=== PATIENT | male | born 1945 | race Caucasian/White ===

== ENCOUNTER → 2017-01-04 | Outpatient (CLI) | payer OTHER ==
[~2017-01-04] VITALS: Ht 182.9 cm; Wt 98.4 kg
[~2017-01-04] MED LIST: ALEVE220 MG PO; AVALIDE 300-121 EACH PO; CARISOPRODOL 3350 MG PO; DILAUDID 4 MG TA4 M1 PO; DILAUDID4 MG PO; DILAUDID8 MG PO; FENTANYL PA25 MCG/HR TRANSDERM; FENTANYL PA50 MCG/HR TRANSDERM; GABAPENTIN; HYDROCODON-ACE1 EAC4 PO; IBUPROFEN 200200 M1 PO; KETOPROFEN; LEXAPRO20 MG PO; LIPITOR10 MG PO; MIRAPEX1 MG PO; MYRBETRIQ25 MG PO; NEURONTIN 300300 M1 PO; NORVASC 5 MG TAB5 MG PO; NORVASC5 MG PO; VICODIN 5-5001 EACH PO; ZIGRID PO
--- NOTE | ~2017-01-04 | HPC ---
[facility] [place] [address] PAIN MANAGEMENT CONSULTATION Name: TOMASGENESIS COLE Room #: REG REGLA BecerraBulmaroKatieBulmaro#: [id number] Admission: 01/04/17 Attend Phys: Sean Pinto MD Discharge: Date of : 43 Report #: [id number] THIS REPORT FOR: //name// CC: Calixto Pinto DATE OF SERVICE: 01/04/2017 REASON FOR VISIT: Followup visit for chronic back pain with radiculopathy status post extensive lumbar fusion. HISTORY OF PRESENT ILLNESS: The patient was in the pain clinic today for the first time since July. I spent about 30 minutes with him discussing his pain and treatment options. We went through a number of issues regarding medication. We talked about opioids, see opioid crisis, proper use of medications, adjuncts and even discussed marijuana. We spent a great deal of time today discussing about implantable options. We discussed in great detail spinal cord stimulation once again. I talked about Nevro, [employer] and [employer]. We talked about trial implant, long-term management and activities associated with the use of a spinal cord stimulator if successful. I think he can return to golf. Intrathecal pump therapies were discussed also as well with pros and cons reviewed. Final topic of discussion today was about biologic treatments including stem cell both adipose retrieved as well as bone marrow retrieved mesenchymal cells and also platelet-rich plasma and I do not think he is a candidate for those sorts treatments at this time. PHYSICAL EXAMINATION: GENERAL: His affect is pleasant but a little bit depressed. VITAL SIGNS: His blood pressure 134/82, heart rate 87, respirations are 16 and his oxygen saturation is 93%. MUSCULOSKELETAL: Able to move from sitting to standing position but walks slowly with antalgic features. Limited range of motion of the lumbar spine is noted. There is large scar that extends from roughly the lower thoracic region to the sacrum. He has hardware in L2 through S1 bilaterally. He has tenderness in the left buttock cheek, just below the iliac crest. He has some straight leg raising pain. No focal weakness is noted. Sensation is intact. IMPRESSION: 1. Severe low back pain with radiculopathy. 2. Lumbar spondylosis above the level of his fusion at L1-L2. 3. Post-laminectomy syndrome with fusion. 4. Management of high risk medication. [address] [address] PAIN MANAGEMENT CONSULTATION Name: GENESIS MARIN [facility] Room #: REG HUNTERCasper Cifuentes#: [id number] Admission: 01/04/17 Attend Phys: Sean Pinto MD Discharge: Date of : 43 Report #: [id number] RECOMMENDATIONS: 1. Caudal epidural injection. 2. Continue use of medication for chronic pain. He will try Soma as a muscle relaxant for bedtime. He has been sleeping in his recliner and hopefully this will provide some relief. PROCEDURE: Caudal injection under fluoroscopic guidance. DESCRIPTION OF PROCEDURE: Skin was prepped with ChloraPrep. Skin anesthetized over the sacroiliitis. With careful manipulation, I advanced the needle into the sacral hiatus. I injecedt first some Omnipaque, which appeared to be far lateral to the right with dye exiting through the anterior neural foramen. I then repositioned the needle until obtained an excellent epidurogram. Omnipaque was used to achieve this. This was then followed by 12 mL 0.5% lidocaine mixed with 80 mg of triamcinolone. He tolerated the procedure well. Pain score was 5 at discharge. Follow up as needed. By: [id number] Sean Pinto MD /nt
[2017-01-04 13:44] VITALS: BP 138/81
== END | disposition home or self-care (01) ==
LOC: PAIN 07:00
DX: M47.896 Other spondylosis, lumbar region (principal); M96.1 Postlaminectomy syndrome, not elsewhere classified; G89.29 Other chronic pain; Z98.1 Arthrodesis status; Z87.891 Personal history of nicotine dependence

== ENCOUNTER → 2017-02-27 | Outpatient (CLI) | payer OTHER ==
[~2017-02-27] VITALS: Ht 182.9 cm; Wt 96.3 kg
--- NOTE | ~2017-02-27 | HPC ---
[facility] [address] [address] PAIN MANAGEMENT CONSULTATION Name: GENESIS MARIN III Room #: REG REGLA Vane#: [id number] Admission: 02/27/17 Attend Phys: Sean Pinto MD Discharge: Date of : 43 Report #: [id number] THIS REPORT FOR: //name// CC: Dr. Spenser Pinto DATE OF REGISTRATION: 02/27/2017. The patient is back in my clinic today after spending time with Dr. Dueñas. He has been bouncing back and forth between both clinics. I saw him last year in December. He became impatient when the his spinal cord stimulator was scheduled for later than he had anticipated. I think it was actually misquoted as far as the date, he was told the end of February. I told him that we would probably be able to do it sooner than that. At any rate, without discussing with me, he simply called up Dr. Dueñas. He was more than happy to perform the procedure for him. He trial and Dr. Dueñas has him scheduled for an implant of a Nevro spinal cord stimulator device. Taking what he says a bit with a grain of salt, he has reported to me that his pain relief was so-so. He really wants the device because he thinks it will help him, but he reports that he was may be 51% better, not dramatically better. He has no pain in his leg at this time. When I first met him, it was more of a radicular component. Now, his pain is more axial in nature and it radiates around his waist, almost in a belt-like distribution. He was curious about whether or not there was something going on intra-abdominally. He has had two hernia repairs and asked about whether or not the mesh of the hernias could be causing the pain. I think it is much more likely that the pain is being caused by the multiple rods and screws that are in his back. The majority of patients who have extensive spinal fusion and we should also note that he has a sacroiliac screw, patients often experience axial back pain as he is describing today, it is worse with standing and walking. Really today, he does not describe radiation much at all. Current medicines are not being prescribed through our clinic. He last received opioids from us in July. I believe his last prescription was from Dr. Dueñas and since Dr. Dueñas is doing the procedures for him at , I have referred to him. I have told him that I will not prescribe medications going forward for him because of the inability to follow recommendations for remaining on an opioid agreement with a single physician. I did present another option and that would be the possibility of intrathecal therapy. For patients in our practice who have had mostly axial back pain rather than radicular pain, we have seen far more improvement and benefit with [facility] [address] [facility] [place] [address] PAIN MANAGEMENT CONSULTATION Name: GENESIS MARIN III Room #: REG REGLA Cifuentes#: [id number] Admission: 02/27/17 Attend Phys: Sean Pinto MD Discharge: Date of : 43 Report #: [id number] intrathecal therapies if oral medications are either not enough or are causing side effects. He has been able to tolerate the opioids, but I do not feel that he is managing them as well as I would like. PHYSICAL EXAMINATION: GENERAL: Today, he is fidgety and anxious. VITAL SIGNS: His blood pressure is 153/74, heart rate 70, he is 6 feet tall, 212 pounds for a BMI of 28.8. NEUROLOGIC: He is able to move from a sitting to standing position, he ambulates without much difficulty. Examination of the spine reveals pain and tenderness mostly along the scar in the paravertebral region from the upper edges of his hardware to his sacrum. He has tenderness out on the sacroiliac joint. No straight leg raising discomfort today and denies radicular symptoms of numbness, tingling or weakness. IMPRESSION: 1. Chronic intractable low back pain today, radiculopathy seems minimal. 2. Lumbar spondylosis that is present with mobility above the level of his two fusions and in between the two fusions. 3. Anxiety and chronic pain. RECOMMENDATIONS: Follow up with Dr. Dueñas and determine whether Dr. Dueñas would consider a trial of intrathecal therapy versus implanting his Nevro device given his limited reported improvement. If Dr. Dueñas and the [facility] team are not following intrathecal pumps at this time as many pain specialists have decided against this burdensome therapy, I would recommend him to follow up with Dr. Martin Collins who has a very active and robust intrathecal pump management practice. Dr. Collins has an excellent program of pump management, which I have observed first hand at [facility]. I have told the patient that I have stopped placing intrathecal pumps and would not be able to provide the therapy for him at this time; he understood. Prior to his discharge, I agreed to try and reach Dr. Dueñas on the phone and discuss his case so that, he and I will have an understanding of where we are going from here. We have both been seeing the patient who decides which of us he would like to see based upon his own criteria of availability. We need to make sure we are in the same page. Followup visit is planned as needed in my clinic and I will personally call the patient on the phone after I have spoken with Dr. Dueñas. I was not able to reach him today. By: [id number] Sean Pinto MD /nt
[2017-02-27 13:43] VITALS: BP 153/74
== END ==
LOC: PAIN 06:48
DX: M47.26 Other spondylosis with radiculopathy, lumbar region (principal); G89.29 Other chronic pain; F41.8 Other specified anxiety disorders; Z87.891 Personal history of nicotine dependence

== ENCOUNTER → 2018-09-04 | Outpatient (CLI) | payer OTHER ==
[~2018-09-04] VITALS: Ht 182.9 cm; Wt 97.5 kg
[~2018-09-04] MED LIST changes: +DILAUDID 4 MG TA4 MG PO; +DURAGESIC1 EAC1 TRANSDERM; +DURAGESIC1 EAC2 TRANSDERM
--- NOTE | ~2018-09-04 | HPC ---
[facility] [address] [place] [address] PAIN MANAGEMENT CONSULTATION Name: GENESIS MARIN III Room #: REG REGLA Cifuentes#: [id number] Admission: 09/04/18 Attend Phys: Claudette Martins Discharge: Date of : 43 Report #: [id number] THIS REPORT FOR: //name// CC: Claudette Martins [facility] DATE OF SERVICE: 09/04/2018 CHIEF COMPLAINT: Today here for medication management for his chronic intractable low back pain with radiculopathy. HISTORY OF PRESENT ILLNESS: The patient returns to the Pain Clinic here at [facility] today after he has been at the [facility] for several months for a medication refill. Dr. Pinto has been seeing him at [facility] that has been closing his patient practice down there and shifting all of his patients back here. The patient has chronic low back pain that radiates into his left buttock and to the top of his right foot. He complains of pain score of 4/10, mostly achy numbness. Today, he tells me it is worse when he is playing golf and standing, but the medications do help as well as heat and sitting in his recliner. He tells me that he is going to [place] where he lives for about 4 months of the year, leaving tomorrow and he is in need of his prescription refills prior to leaving. Dr. Pinto had talked to the patient via telephone and tried to make arrangements so this patient could get his 3-month medications prior to his flight tomorrow. ALLERGIES: OXYCODONE, KEFLEX, AUGMENTIN, PHENERGAN AND REGLAN. CURRENT MEDICATIONS: Dilaudid 4 mg every 6 hours, fentanyl patch 50 mcg every 72 hours, Soma 350 mg at bedtime, amlodipine 5 mg daily, atorvastatin 10 mg daily, Lexapro 20 mg daily, Mirapex 1 mg at bedtime and, irbesartan/hydrochlorothiazide 300/12.5 daily. PQRS: 1. The patient has a history of osteoarthritis in his bilateral lower extremities. Denies rheumatoid arthritis. 2. Height 6 feet 0 inches, weight is 215, BMI is 29.2. 3. Vital signs: Blood pressure 149/86, pulse is 88, respirations 18, oxygen sat is 93%. 4. Pain score today is 4/10. 5. Fall risk. He denies dizziness. Does not need help walking or standing, has not fallen in the last 3 months. 6. He is not on a blood thinner and he takes antihypertensives on a daily basis. 7. His opioid sign contract unsure of from [facility], there is one here at [facility]. 8. His risk assessment tool is low and his functional assessment is 45/70. [facility] [address] [place] [address] PAIN MANAGEMENT CONSULTATION Name: T[facility]GENESIS [facility] Room #: REG REGLA Cifuentes#: [id number] Admission: 09/04/18 Attend Phys: Claudette Martins Discharge: Date of : 43 Report #: [id number] 9. The patient does not use recreational drug use. He is a former smoker and he drinks alcohol daily. We did not check the prescription monitoring system as this patient was an add-on today. The patient tells me he does fill his medications at [facility] pharmacy and has filled them a month ago per the pharmacy. PHYSICAL EXAMINATION: GENERAL: This is a well-developed, well-nourished gentleman that appears his stated age of [age] years old. He is alert and oriented and his affect is appropriate. HEENT: Normocephalic, atraumatic. Extraocular eye muscles are intact. Mucous membranes are moist. Hearing is adequate. NEUROLOGICAL AND MUSCULOSKELETAL: He is able to move from sitting to standing and he ambulates without much difficulty. He has been walking around the room, moving quite frequently today without difficulty. He denies any radicular pain symptoms in his upper legs today, but does have some pain in the top foot area of numbness and tingling. ASSESSMENT: 1. Chronic intractable low back pain, radiculopathy, minimal today. 2. Lumbar spondylosis, status post fusions. 3. Management of high risk medications under opioid agreement. 4. Post-laminectomy syndrome with fusion. We reviewed the fact that opiate medications are being used to provide analgesia adequate to support activities of daily living, not attempting to achieve a specific pain score on the 0-10 Visual Analog Scale. The current opiate medications are providing sufficient analgesia to allow the patient to participate in activities of daily living. The patient is not exhibiting any aberrant behavior suggestive of drug diversion. The patient is not having any adverse reactions to medications. The patient is not suffering from daytime somnolence or mental acuity changes. The patient is managing opiate-induced constipation with appropriate [id number] agents and dietary considerations. The patient was counseled on concern for caution with operating a motor vehicle while using opiate medications. A physical exam was performed and the patient's functional status was evaluated. All patients with back pain were advised against the bed rest greater than 4 days and were advised to return to normal activities. Pain score assessment was noted and the treatment plan was reviewed with the patient. All current medications, both prescribed and OTC were reviewed and reconciled on the electronic medical record. Tobacco screening was accomplished and smoking cessation was advised when indicated. BMI was noted and diet/exercise modification was recommended for all patients following outside normal parameters. [facility] [address] [place] [address] PAIN MANAGEMENT CONSULTATION Name: TOMASGENESIS III Room #: REG [facility]#: [id number] Admission: 09/04/18 Attend Phys: Claudette Martins Discharge: Date of : 43 Report #: [id number] I reviewed with the patient today their responsibilities to safeguard prescription medications, reviewed their responsibility to utilize medications only as prescribed by the physician. They are to seek and receive pain medications only from 1 physician group ( [facility]). They are to use 1 pharmacy and keep the clinic informed if they change pharmacies. Their responsibilities include making followup visits in a timely fashion and to avoid abrupt discontinuation of medication usage. Their responsibilities further include bringing their medications (bottles from the pharmacy with residual pills) to the visit for possible confirmation of pill counts and the patient understands it is their responsibility to submit to random drug screens to ensure both that the medications prescribed are present, and that no other controlled substances are present. All prescriptions provided today were generated electronically. PLAN: 1. The patient was seen in followup today for Dr. Sean Pinto for this patient as a patient of his at [facility] transferring back to [place]. He is here for medication management today as patient is going to [place] tomorrow for 4 months' time period and needs his medication filled prior to that long trip for the winter. 2. The patient has a script here from Dr. Pinto for 3 months of his medications to be filled downstairs at our [facility] for his fentanyl 50 mcg patches quantity 45 and Dilaudid 4 mg every 6 hours, quantity 360, which are both three-month supplies. 3. Discussed with the pharmacy downstairs. They do not have 3 months of this medication on hand, they would have to order this and would be able to have it by tomorrow. The patient tells me that he is flying out in the morning, so therefore the patient is not able to use the medical mall pharmacy. I called [facility], his local pharmacy that he normally fills his medications, they were able to fill at least 1 month possibly longer. They were checked their supply, pharmacist Edita told me she would personally take care of him today, so he could leave tomorrow. 4. I instructed the patient that he should get as many of his 3-month supply as possible from the [facility]acy, take the letter that Dr. Pinto has written for him out to his doctors in [place] and present that to them. He does have a pain management doctor he follows in [place] as well as a primary care doctor. Hopefully, one of those physicians will be willing to write his leftover medications to get him back to see us in his 4 months. The patient is agreeable with attempting this, get medications filled in [place]. 5. If the patient is unsuccessful for finding a doctor to fill his medicines after he is ending the prescriptions that we have given him, he may have to return to see Dr. Pinto for a visit in the winter if he is unable to find a physician willing to write his medication. The patient understands this and hopes that his primary care doctor in [place] will write his medicines for the remainder of his trip. [address] [address] PAIN MANAGEMENT CONSULTATION Name: GENESIS MARIN III Room #: REG REGLA Cifuentes#: [id number] Admission: 09/04/18 Attend Phys: Claudette Martins Discharge: Date of : 43 Report #: [id number] 6. Scripts given for Linzess 145 mcg, #30 for his constipation with 2 additional refills. Second medication is Flexeril 10 mg 1 t.i.d., the patient to take one tablet at bedtime, quantity 90 with no additional refills. 7. The patient was discharged with scripts in hand to go to [facility]. We will see the patient in 12/2017 if not further appointment sooner if he needs be as stated above. Care given today with collaboration of Dr Pinto. <ELECTRONICALLY SIGNED> By: Claudette Martins 09/05/18 0728 [id number] Claudette Martins /gita
[2018-09-04 11:11] VITALS: BP 149/86
== END ==
LOC: PAIN 10:42
DX: M47.26 Other spondylosis with radiculopathy, lumbar region (principal); G89.4 Chronic pain syndrome; M96.1 Postlaminectomy syndrome, not elsewhere classified; F11.21 Opioid dependence, in remission; Z79.899 Other long term (current) drug therapy

== ENCOUNTER → 2019-01-10 | Outpatient (CLI) | payer OTHER ==
[~2019-01-10] VITALS: Ht 182.9 cm; Wt 98.0 kg
[~2019-01-10] MED LIST changes: +CYMBALTA30 MG PO; +FLOMAX0.4 MG PO; +LINZESS145 MCG PO; +MODAFINIL200 MG PO; +SINEMET 25-1001 EAC1 PO; +TESTOSTERONE75 G1 TOP
[2019-01-10 09:54] VITALS: BP 131/86
--- NOTE | 2019-01-10 10:14 | NUR ---
Pain Clinic Assessment: 1. History of Osteoarthritis: Left Lower Extremity Right Lower Extremity History of Rheumatoid Arthritis: Not Applicable 2. Height: 6 ft. 0 in. 182.9 cm. Weight: 216.0 lb. oz. 97.977 kg. Patient's BMI: 29.3 3. Vital Signs: BP: 131/86 Pulse: 81 Resp: 14 Temp: 02 Sat: 97 ECG Mon: 4. Pain Intensity: 3 5. Fall Risk: Dizziness: Y Needs help standing or walking: N Fallen in the last 3 months: N Fall risk comments: 6. Patient on Blood Thinner: None 7. History of Hypertension: Y 8. Opioid Therapy greater than 6 weeks: Y Opiate Contract Signed: 07/07/16 9. Risk Assessment Tool Provided: 3-L0W 10. Functional Assessment Tool: 11. Recreational Drug Use: Never Drug Type: Tobacco Use: Former Smoker Tobacco Type: Amount or Packs/day: How Many Years: Alcohol Use: Yes Frequency: Daily Quant: 1-2
--- NOTE | 2019-01-11 07:44 | HPC ---
[facility] [address] [place] [address] PAIN MANAGEMENT CONSULTATION Name: GENESIS MARIN III Room #: REG Casper Cifuentes#: [id number] Admission: 01/10/19 ������������������ Attend Phys: Claudette Martins Discharge: ������������������ Date of : 43 Report #: [id number] THIS REPORT FOR: //name// CC: Claudette Martins [facility] DATE OF SERVICE: 01/10/2019 CHIEF COMPLAINT: Chronic intractable low back pain with radiculopathy. HISTORY OF PRESENT ILLNESS: The patient returns to the pain clinic today after being in [place] for the winter. He is here for medication consultation regarding his fentanyl patches and Dilaudid pills, he has ongoing low back pain and chronic right buttock pain and today he is experiencing some abdominal pain and having uncontrolled diarrhea. He tells me he had a CAT scan yesterday and seeing a GI doctor later today. His pain score today is a 3/10, worse with playing golf and lying down. His medication is very helpful as well as using his heat in his recliner. When the patient was in [place], he did see Dr. Pollard who is his pain doctor that he sees while he easley in [place] and has had seen him for several years. He did receive 2 months of medications from him. The first month it was his fentanyl 50 mcg patches and his Dilaudid 4 mg, the second month he did see a nurse practitioner who switched him to fentanyl patches that were 75 mcg to wear every 72 hours and no Dilaudid pills. He tells me he did not want to start those until he had the okay with Dr. Sean Pinto. He had two fentanyl 50 patches left, so he has placed a patch on today seeking Dr. Pinto's advice of if he should start the 75, which he did fill and has brought with him today or if he should destroy those and use his 50 mcg patches that he has been using for quite some time. ALLERGIES: OXYCODONE, KEFLEX, AUGMENTIN, PROMETHAZINE AND REGLAN. MEDICATIONS: Current list of medications, Linzess 145 mcg daily, testosterone gel daily, Flomax daily, modafinil 200 mg daily, Cymbalta 30 mg daily, Sinemet 25/100 t.i.d., hydromorphone 4 mg every 6 hours p.r.n., fentanyl patch 50 mcg every 48 hours, Zegerid, amlodipine 5 mg daily, Mirapex 0.25 mg t.i.d., and irbesartan/hydrochlorothiazide daily. PQRS: 1. He has osteoarthritis in his lower extremities, in his lower back. He denies any rheumatoid arthritis. 2. Height 6 feet, weight is 216, BMI is 29. 3. Vital signs: Blood pressure 131/86, pulse is 81, respirations 14, oxygen sat is 97. 4. Pain score is 3/10. [address] [address] PAIN MANAGEMENT CONSULTATION Name: GENESIS MARIN [facility] Room #: TABITHA Cifuentes#: [id number] Admission: 01/10/19 ������������������ Attend Phys: Claudette Martins Discharge: ������������������ Date of : 43 Report #: [id number] 5. The patient complains of some dizziness. He does not need help walking or standing. Has not fallen in the last 3 months. 6. The patient is not on any blood thinners. He does take medicines for hypertension. 7. Opiate therapy is greater than 6 weeks. Therefore, an opiate signed contract is on the chart. 8. Risk assessment tool is low. Functional assessment is 45/70. 9. Recreational drug use, he denies, he is a former smoker and does drink alcohol. We were unable to obtain prescription monitoring from [place], but we do have his prescriptions here of his 75 mcg that he filled on 12/24/2018. PHYSICAL EXAMINATION: GENERAL: This is a well-developed, well-nourished gentleman that appears his stated age of 73. He is alert and orientated and his affect is appropriate. HEENT: Normocephalic, atraumatic. Extraocular eye muscles are intact. Mucous membranes are moist. MUSCULOSKELETAL: He is able to move from sitting to standing and ambulates without much difficulty. He has a slightly antalgic gait. He denies any radicular pain today. Only complains of some mild abdominal pain. ASSESSMENT: 1. Chronic intractable low back pain with radiculopathy. 2. Lumbar spondylosis, status post fusion. 3. Management of high risk medication and returns a written opioid agreement. 4. Post-laminectomy syndrome with fusion. We reviewed the fact that opiate medications are being used to provide analgesia adequate to support activities of daily living, not attempting to achieve a specific pain score on the 0-10 Visual Analog Scale. The current opiate medications are providing sufficient analgesia to allow the patient to participate in activities of daily living. The patient is not exhibiting any aberrant behavior suggestive of drug diversion. The patient is not having any adverse reactions to medications. The patient is not suffering from daytime somnolence or mental acuity changes. The patient is managing opiate-induced constipation with appropriate [id number] agents and dietary considerations. The patient was counseled on concern for caution with operating a motor vehicle while using opiate medications. A physical exam was performed and the patient's functional status was evaluated. All patients with back pain were advised against the bed rest greater than 4 days and were advised to return to normal activities. Pain score assessment was noted and the treatment plan was reviewed with the patient. All current medications, both prescribed and OTC were reviewed and reconciled on the electronic medical record. Tobacco screening was accomplished and smoking cessation was advised when indicated. BMI was noted and diet/exercise modification was recommended for all patients following outside normal [facility] [address] [place] [address] PAIN MANAGEMENT CONSULTATION Name: GENESIS MARIN III Room #: REG [facility] Vane#: [id number] Admission: 01/10/19 ������������������ Attend Phys: Claudette Martins Discharge: ������������������ Date of : 44 Report #: [id number] parameters. I reviewed with the patient today their responsibilities to safeguard prescription medications, reviewed their responsibility to utilize medications only as prescribed by the physician. They are to seek and receive pain medications only from 1 physician group ( [facility]). They are to use 1 pharmacy and keep the clinic informed if they change pharmacies. Their responsibilities include making followup visits in a timely fashion and to avoid abrupt discontinuation of medication usage. Their responsibilities further include bringing their medications (bottles from the pharmacy with residual pills) to the visit for possible confirmation of pill counts and the patient understands it is their responsibility to submit to random drug screens to ensure both that the medications prescribed are present, and that no other controlled substances are present. All prescriptions provided today were generated electronically. PLAN: 1. We discussed treatment options with the patient today. The patient has brought fentanyl patches of 75 mcg from a doctor in [place]. Wondering if he should start those or resume his [address] Pinto gives him. Dr. Pinto was present for part of the discussion today, it was decided to continue his 75 mcg patches every 72 hours. 2. We discussed the morphine mEq with the patient. If the patient were to take Dilaudid 4 mg tablets 3 times a day plus 50 mcg patch every 48 hours, his morphine mEq was 168, if the patient takes 75 mcg patch every 3 days, his morphine mEq is 180. We explained that these are the CDC guidelines, but they want patients to be at 90 morphine mEq or below that is the practice of this doctor's group to try to taper people's medications to a lower dose if able. We have had much success in doing that, but those are above 90 are seen every month for their medication refills. I informed the patient of this that his dose is at 180, so therefore we would see him at least on a monthly basis. 3. The patient and family were instructed to try the fentanyl 75 mcg patches every 72 hours for a total of 3 patches before calling the clinic to tell us they are not effectively controlling his pain. We want the patient to have a good trial with no oral breakthrough Dilaudid and he is able to take some Tylenol Extra Strength if he needs to throughout the day. The patient and verbalized understanding. Appointment made with Dr. Pinto for 01/24/2019. At that time, we will reevaluate how the patient is doing with his current pain control and decided to continue on current dose or resume his previous medications. The patient verbalizes his understanding. 4. No other prescriptions were given today since the patient had the fentanyl in his possession. We did not give him Linzess or Flexeril, which he does get from our facility. The patient is going to see a GI doctor after this visit. [facility] [address] [place] [address] PAIN MANAGEMENT CONSULTATION Name: GENESIS MARIN III Room #: REG REGLA BecerraBulmaroKatieBulmaro#: [id number] Admission: 01/10/19 ������������������ Attend Phys: Claudette Martins Discharge: ������������������ Date of : 44 Report #: [id number] He had a recent CT of his abdomen with contrast and is having some diarrhea issues. I informed them to discuss his Linzess with the GI doctor before we prescribed it. 5. The patient is seen with Dr. Pinto who collaborated care for this extensive visit today. ��������������������������������������������� <ELECTRONICALLY SIGNED> ���������������������������������������� By: Claudette Martins ��������������������������������������������� 01/11/19 0744 [id number] Claudette Martins /gita
== END ==
LOC: PAIN 06:57
DX: M47.26 Other spondylosis with radiculopathy, lumbar region (principal); M96.1 Postlaminectomy syndrome, not elsewhere classified; G89.29 Other chronic pain; Z88.8 Allergy status to other drugs, medicaments and biological substances; Z79.899 Other long term (current) drug therapy; Z79.891 Long term (current) use of opiate analgesic

== ENCOUNTER → 2019-01-24 | Outpatient (CLI) | payer OTHER ==
[~2019-01-24] VITALS: Ht 182.9 cm; Wt 99.3 kg
[~2019-01-24] MED LIST changes: +FENTANYL PATCH75 MCG TRANSDERM; +ZEGERID OTC 201 EACH PO
[2019-01-24 09:46] VITALS: BP 116/68
--- NOTE | 2019-01-24 09:50 | NUR ---
Pain Clinic Assessment: 1. History of Osteoarthritis: Left Lower Extremity Right Lower Extremity History of Rheumatoid Arthritis: Not Applicable 2. Height: 6 ft. 0 in. 182.9 cm. Weight: 219.0 lb. oz. 99.338 kg. Patient's BMI: 29.7 3. Vital Signs: BP: 116/68 Pulse: 103 Resp: 18 Temp: 02 Sat: 94 ECG Mon: 4. Pain Intensity: 3 5. Fall Risk: Dizziness: N Needs help standing or walking: N Fallen in the last 3 months: N Fall risk comments: 6. Patient on Blood Thinner: None 7. History of Hypertension: Y 8. Opioid Therapy greater than 6 weeks: Y Opiate Contract Signed: 07/07/16 9. Risk Assessment Tool Provided: 3-L0W 10. Functional Assessment Tool: 11. Recreational Drug Use: Never Drug Type: Tobacco Use: Former Smoker Tobacco Type: Amount or Packs/day: How Many Years: Alcohol Use: Yes Frequency: Quant:
--- NOTE | 2019-01-28 07:24 | HPC ---
[facility] [address] [place] [address] PAIN MANAGEMENT CONSULTATION Name: GENESIS MARIN III Room #: REG REGLA Cifuentes#: [id number] Admission: 01/24/19 ������������������ Attend Phys: Claudette Martins Discharge: ������������������ Date of : 44 Report #: [id number] THIS REPORT FOR: //name// CC: Claudette Staley MD DATE OF SERVICE: 01/24/2019 CHIEF COMPLAINT: Chronic intractable low back pain with radiculopathy. HISTORY OF PRESENT ILLNESS: This is a 73-year-old gentleman who returns to the pain clinic today for discussion on his medications. We saw him about 2 weeks ago after he had returned from [place] from his winter there with a prescription for fentanyl patches 75 mcg. After much discussion, it was decided to give it a trial of the 75 mcg Duragesic patches with no breakthrough medicine and see how his pain is. The patient returns today telling me that his pain is a 3/10 currently. In the 2-1/2 weeks since we saw the patient, he tells me that the first few days, his pain was really good when he wore a patch, his pain was 1 on day 1 and on day 2, it was about a 4 but day 3, his pain would escalate to 10/10. He tells me he did have to go to [facility] last week where he was given some Flexeril, Benadryl and Ativan to help decrease his pain. No narcotics were given for him upon discharge. He tells me when he is unable to make it 72 hours between patch changes. Previously, he had been on Duragesic patches every 48 hours since he seems to suffer with of dose failure. The patient placed a new patch yesterday and is telling me that his pain is a 3 today, which is pretty typical of how his pain is after on his second day. He would like to be able to decrease his patch change to 48 hours. The patient also tells me he has been having ongoing right upper quadrant pain that he thinks is related from his back. He did have a CT of his abdomen that was negative and did follow up with the GI doctor also having some lab work drawn for other issues from his primary care doctor. ALLERGIES: OXYCODONE, KEFLEX, AUGMENTIN, AMOXICILLIN, PHENERGAN and REGLAN. MEDICATIONS: Zegerid, fentanyl patch 75 mcg every 72 hours, Linzess, testosterone daily, 0.4 daily, Cymbalta 30 mg daily, carbidopa/levodopa 25/100 t.i.d., amlodipine 5 mg daily, Mirapex 0.25 t.i.d. and Avalide 300/12.5 at bedtime. PQRS: He has osteoarthritis in his lower extremities and his lower back. He denies any rheumatoid arthritis. Height is 6 feet, weight is 219 and BMI is 29.7. Vital signs: Blood pressure is 116/68, pulse is 103, respirations 18, oxygen sat is 94 and pain score is 3/10. Fall risk, he denies dizziness. Does [address] [address] PAIN MANAGEMENT CONSULTATION Name: GENESIS MARIN III [id number] Admission: 01/24/19 ������������������ Attend Phys: Claudette Martins Discharge: ������������������ Date of : 44 Report #: [id number] not need help with walking. He has not fallen in the last 3 months. The patient is not on a blood thinner but does take medicines for hypertension. Opioid therapy is greater than 6 weeks; therefore, an opioid signed contract is on the chart. His risk assessment tool is low. His functional assessment is 45/70. Recreational drug use, he denies. He is a former smoker and does drink alcohol. We did check the prescription monitoring system and the patient has returned with 4 patches of his fentanyl 75 mcg. The patient does safeguard his medicine with no aberrant behavior. PHYSICAL EXAMINATION: GENERAL: This is a well-developed, well-nourished gentleman who appears his stated age of 73. He is alert and orientated and his affect is appropriate. Placing his pain score today at 3/10. HEENT: Normocephalic and atraumatic. Extraocular eye muscles are intact. Mucous membranes are moist. MUSCULOSKELETAL: He moves from sitting to standing and ambulates without much difficulty. He has an antalgic gait. Does complain of pain in the left subcostal anterior portion of his mid back and across his lower back bilaterally. It does radiate around into his left upper quadrant of his abdomen. ASSESSMENT: 1. Chronic intractable low back pain with radiculopathy involving the lumbar and thoracic spine. 2. Lumbar spondylosis, status post fusion x 3 surgeries. 3. Management of high risk medications in terms of written opioid agreement. 4. Post-laminectomy syndrome with fusion. We reviewed the fact that opiate medications are being used to provide analgesia adequate to support activities of daily living, not attempting to achieve a specific pain score on the 0-10 Visual Analog Scale. The current opiate medications are providing sufficient analgesia to allow the patient to participate in activities of daily living. The patient is not exhibiting any aberrant behavior suggestive of drug diversion. The patient is not having any adverse reactions to medications. The patient is not suffering from daytime somnolence or mental acuity changes. The patient is managing opiate-induced constipation with appropriate cccg-cvj-uirpeag agents and dietary considerations. The patient was counseled on concern for caution with operating a motor vehicle while using opiate medications. A physical exam was performed and the patient's functional status was evaluated. All patients with back pain were advised against the bed rest greater than 4 days and were advised to return to normal activities. Pain score assessment was noted and the treatment plan was reviewed with the patient. All current medications, both prescribed and OTC were reviewed and reconciled on the electronic medical record. Tobacco screening was accomplished and smoking [address] [address] PAIN MANAGEMENT CONSULTATION Name: GENESIS MARIN [facility] Room #: REG [facility] Vane#: [id number] Admission: 01/24/19 ������������������ Attend Phys: Claudette Martins Discharge: ������������������ Date of : 44 Report #: [id number] cessation was advised when indicated. BMI was noted and diet/exercise modification was recommended for all patients following outside normal parameters. I reviewed with the patient today their responsibilities to safeguard prescription medications, reviewed their responsibility to utilize medications only as prescribed by the physician. They are to seek and receive pain medications only from 1 physician group ( [facility]). They are to use 1 pharmacy and keep the clinic informed if they change pharmacies. Their responsibilities include making followup visits in a timely fashion and to avoid abrupt discontinuation of medication usage. Their responsibilities further include bringing their medications (bottles from the pharmacy with residual pills) to the visit for possible confirmation of pill counts and the patient understands it is their responsibility to submit to random drug screens to ensure both that the medications prescribed are present, and that no other controlled substances are present. All prescriptions provided today were generated electronically. PLAN: 1. We discussed treatment options with the patient today. The patient tells me that he is having end of dose failure with his fentanyl patches. He previously has been needing them every 48 hours but with a 75 mcg patch trial, we are hopeful that he could last 72. This does not seem to be the case. Scripts will be written today for fentanyl 75 mcg patch every 48 hours, quantity 15 for today and 4-week release. He still has 4 patches left, so we will not need them for another week in case we need a prior authorization. This is a high dose narcotic patient. His current morphine milliequivalent is 180; therefore, we keep seeing him monthly to every 2 months for followup in regards to his opioids. We did check random drug screens as well as our prescription monitoring system on this patient. Dr. Pinto was present for part of this visit and feels that it will be beneficial for this patient to have his pain medicine every 48 hours since he has had 3 back surgeries in the past and continues to have ongoing back pain. 2. We discussed that the patient had not had any new MRI since possibly 2015, though we have no record of that on her chart. Her last one dates back to 2014, I think it would be beneficial to check an MRI of his thoracic and lumbar spines to see if there is something new that is causing this new radiation into his abdomen. 3. We also discussed spinal cord stimulator and intrathecal pump. The patient has had both of these trials in the past for these devices that were not helpful. 4. We did discuss briefly regarding injection therapy. We will see what the MRI report shows from 1 to be ordered and decide from there. 5. The patient may follow up with Dr. Abdalla who performed his last back surgery. We will await to see what the MRI shows. 6. We encouraged the patient to be as active as possible, which he does try to [address] [address] PAIN MANAGEMENT CONSULTATION Name: GENESIS MARIN III Room #: TABITHA JosephBulmaro#: [id number] Admission: 01/24/19 ������������������ Attend Phys: Claudette Martins Discharge: ������������������ Date of : 43 Report #: [id number] play golf and walk. 7. The patient is seen with Dr. Pinto, who collaborated care today. We will see the patient back in 2 months' time. ��������������������������������������������� <ELECTRONICALLY SIGNED> ���������������������������������������� By: Claudette Martins ��������������������������������������������� 01/28/19 0724 [id number] Claudette Martins /gita
== END ==
LOC: PAIN 06:46
DX: M47.26 Other spondylosis with radiculopathy, lumbar region (principal); M96.1 Postlaminectomy syndrome, not elsewhere classified; G89.4 Chronic pain syndrome; Z88.8 Allergy status to other drugs, medicaments and biological substances; Z79.899 Other long term (current) drug therapy; Z98.890 Other specified postprocedural states

== ENCOUNTER → 2019-03-25 | Outpatient (CLI) | payer OTHER ==
[~2019-03-25] VITALS: Ht 205.7 cm; Wt 95.6 kg
[~2019-03-25] MED LIST changes: +DURAGESIC1 EAC5 TOP
[2019-03-25 09:32] VITALS: BP 132/87
--- NOTE | 2019-03-25 09:45 | NUR ---
Pain Clinic Assessment: 1. History of Osteoarthritis: Left Lower Extremity Right Lower Extremity History of Rheumatoid Arthritis: Not Applicable 2. Height: 6 ft. 9 in. 205.7 cm. Weight: 210.8 lb. oz. 95.618 kg. Patient's BMI: 22.6 3. Vital Signs: BP: 132/87 Pulse: 109 Resp: 18 Temp: 02 Sat: 99 ECG Mon: 4. Pain Intensity: 9 5. Fall Risk: Dizziness: N Needs help standing or walking: N Fallen in the last 3 months: Y Fall risk comments: 6. Patient on Blood Thinner: None 7. History of Hypertension: Y 8. Opioid Therapy greater than 6 weeks: Y Opiate Contract Signed: 07/07/16 9. Risk Assessment Tool Provided: 3-L0W 10. Functional Assessment Tool: 11. Recreational Drug Use: Never Drug Type: Tobacco Use: Former Smoker Tobacco Type: Amount or Packs/day: How Many Years: Alcohol Use: Yes Frequency: Quant:
--- NOTE | 2019-03-25 15:45 | HPC ---
[facility] [address] [place] [address] PAIN MANAGEMENT CONSULTATION Name: GENESIS MARIN III Room #: REG REGLA Cifuentes#: [id number] Admission: 03/25/19 ������������������ Attend Phys: Claudette Martins Discharge: ������������������ Date of : 43 Report #: [id number] THIS REPORT FOR: //name// CC: Claudette De Luna Luís DATE OF SERVICE: 03/25/2019 CHIEF COMPLAINT: Chronic intractable low back pain with radiculopathy and thoracic pain. HISTORY OF PRESENT ILLNESS: This is a 73-year-old male that returns to the pain clinic today for refill of his medications. He tells me that he was in [facility] last week for a couple of days. They did consult a pain doctor there. He did see this physician who recommended to him that he go on morphine. The patient did not start it while in the hospital. He wanted to talk with about it first. He tells me he has his fentanyl patches on and he has not had any Dilaudid for several days. The patient is very antsy, anxious, walking in the halls today, walking around the room where we are visiting. The patient tells me that his pain is mostly in his mid back on his left side as well as his lower back and legs. He tells me his pain score is a 9/10 today, worse with standing, though that what he is doing the entire time of our visit. He tells me that the Dilaudid was not very helpful and so that is why he quit taking it. He has been having some diarrhea and his pain has been increased. He would like to discuss options of his pain medicine today. ALLERGIES: OXYCODONE, KEFLEX, AUGMENTIN, AMOXICILLIN, PROMETHAZINE, and REGLAN. CURRENT LIST OF MEDICATIONS: Fentanyl patch every 48 hours, Zegerid daily, Linzess daily, testosterone daily, Flomax daily, modafinil 200 mg daily, Celebrex 30 mg daily, Sinemet 25/100 two tablets t.i.d., amlodipine 5 mg daily, Mirapex 0.25 mg 3 times a day, and Avalide 300/12.5 mg daily. PQRS: 1. The patient has a history of osteoarthritis in his lower extremities and his spine. He denies any rheumatoid arthritis. 2. Height is 6 feet 9 inches, weight is 210 and BMI is 22. 3. Vital signs: Blood pressure 132/87, pulse is 109, respirations 18, oxygen sat is 99, pain score is 9/10. 4. The patient denies dizziness, does not need help walking or standing. He has fallen in the last 3 months. 5. The patient is not on any blood thinners, does have a history of hypertension. 6. Opioid therapy is greater than 6 weeks; therefore, an opiate signed contract is on the chart. Risk assessment tool is low. Functional assessment is 45/70. [address] [address] PAIN MANAGEMENT CONSULTATION Name: GENESIS MARIN III Room #: [facility] REGLA Cifuentes#: [id number] Admission: 03/25/19 ������������������ Attend Phys: Claudette Martins Discharge: ������������������ Date of : 43 Report #: [id number] 7. Recreational drug use, never. He is a former smoker and occasionally uses alcohol. We did check the prescription monitoring system. The patient is due for his fentanyl patches to be filled today. We will check a drug screen on the patient at his next visit. PHYSICAL EXAMINATION: GENERAL: This is a well-developed, well-nourished gentleman who appears his stated age of 73. He is alert and orientated. His affect is appropriate, quite anxious appearing today, pacing in the room, placing his current pain score today at 9/10. HEENT: Normocephalic, atraumatic. Extraocular eye muscles are intact. Mucous membranes are moist. MUSCULOSKELETAL: The patient moves from sitting to standing without difficulty. He does have a slightly antalgic gait. Complains of pain in his mid back in the left thoracic and lumbar area at the left subcostal anterior portion of his mid back. Pain radiates into his hips and down his bilateral legs to his thighs. ASSESSMENT: 1. Chronic intractable low back pain with radiculopathy involving the lumbar and thoracic spine. 2. Lumbar spondylosis, status post fusions x3 surgeries. 3. Post-laminectomy syndrome with fusion. 4. Management of high-risk medications and returns a written opioid agreement. We reviewed the fact that opiate medications are being used to provide analgesia adequate to support activities of daily living, not attempting to achieve a specific pain score on the 0-10 Visual Analog Scale. The current opiate medications are providing sufficient analgesia to allow the patient to participate in activities of daily living. The patient is not exhibiting any aberrant behavior suggestive of drug diversion. The patient is not having any adverse reactions to medications. The patient is not suffering from daytime somnolence or mental acuity changes. The patient is managing opiate-induced constipation with appropriate [id number]-ngtvikv agents and dietary considerations. The patient was counseled on concern for caution with operating a motor vehicle while using opiate medications. A physical exam was performed and the patient's functional status was evaluated. All patients with back pain were advised against the bed rest greater than 4 days and were advised to return to normal activities. Pain score assessment was noted and the treatment plan was reviewed with the patient. All current medications, both prescribed and OTC were reviewed and reconciled on the electronic medical record. Tobacco screening was accomplished and smoking cessation was advised when indicated. BMI was noted and diet/exercise [facility] [address] [place] [address] PAIN MANAGEMENT CONSULTATION Name: MARINGENESIS III [id number] Admission: 03/25/19 ������������������ Attend Phys: Claudette Martins Discharge: ������������������ Date of : 43 Report #: [id number] modification was recommended for all patients following outside normal parameters. I reviewed with the patient today their responsibilities to safeguard prescription medications, reviewed their responsibility to utilize medications only as prescribed by the physician. They are to seek and receive pain medications only from 1 physician group ( [facility]). They are to use 1 pharmacy and keep the clinic informed if they change pharmacies. Their responsibilities include making followup visits in a timely fashion and to avoid abrupt discontinuation of medication usage. Their responsibilities further include bringing their medications (bottles from the pharmacy with residual pills) to the visit for possible confirmation of pill counts and the patient understands it is their responsibility to submit to random drug screens to ensure both that the medications prescribed are present, and that no other controlled substances are present. All prescriptions provided today were generated electronically. PLAN: 1. We discussed treatment options with the patient today. He recently was in the [facility] where a pain physician did see him and recommended him to start morphine. I explained to the patient that if Dr. Pinto decided to do that he would rotate him possibly off his fentanyl patches. They did talk to him about his high dose of narcotics. I explained to the patient that his morphine milliequivalent, which Dr. Pinto and I have talked to him at great length, is quite high that of 180 morphine milligram equivalent when he takes the Dilaudid and the fentanyl. If he would just take his fentanyl tablet or patches, he is at 120 morphine milliequivalent, which is still above the CDC guidelines. 2. We did talk about hyperalgesia, opioid rotation and opioid withdrawal today. The patient seems that he may be suffering slightly from opioid withdrawal since he has stopped all of his breakthrough pain medicine and only on his fentanyl patches. The patient tells me he does not need his Dilaudid. He has plenty of that at home. Does not think that it works well, even though he had requested that medication in the past. He has some hydrocodone at home. He feels that he will try that and see if that will help some of his breakthrough pain that he is experiencing. I did talk about opioid withdrawal symptoms. He is having some diarrhea today and is quite agitated and does not feel good and encouraged him to take one Dilaudid a day, not before that he had been on in the past, if he would like to decrease his medicine. 3. The patient said the doctor did talk about spinal cord stimulator and intrathecal pump with him. He had both these trials in the past and they were not helpful. 4. The patient will make appointment to see Dr. Pinto in the next month to discuss opioid rotation to possible morphine. The patient will continue this month to try and take minimal Dilaudid to see if he is able to decrease his narcotic intake. [address] [address] PAIN MANAGEMENT CONSULTATION Name: GENESIS MARIN III Room #: REG REGLA Cifuentes#: [id number] Admission: 03/25/19 ������������������ Attend Phys: Claudette Martins Discharge: ������������������ Date of : 43 Report #: [id number] The patient's was here present today and an appointment made before discharge. The patient is seen today in collaboration with Dr. Sean Pinto who discussed the case with Dr. Galo prior to going on vacation. Dr. Galo is collaborating me today on this patient. ��������������������������������������������� <ELECTRONICALLY SIGNED> ���������������������������������������� By: Claudette Martins ��������������������������������������������� 03/25/19 1545 [id number] Claudette Martins /nt
== END ==
LOC: PAIN 02-14 06:42
DX: M47.26 Other spondylosis with radiculopathy, lumbar region (principal); M43.26 Fusion of spine, lumbar region; G89.4 Chronic pain syndrome; Z79.891 Long term (current) use of opiate analgesic; Z98.890 Other specified postprocedural states

== ENCOUNTER → 2019-04-25 | Outpatient (CLI) | payer OTHER ==
[~2019-04-25] VITALS: Ht 182.9 cm; Wt 94.8 kg
[~2019-04-25] MED LIST changes: +HORIZANT600 MG PO; +HYDROCODON-ACE1 EAC5 PO; +NORCO 10-325 T1 EACH PO
[2019-04-25 12:43] VITALS: BP 132/85
--- NOTE | 2019-04-25 12:50 | NUR ---
Pain Clinic Assessment: 1. History of Osteoarthritis: Left Lower Extremity Right Lower Extremity History of Rheumatoid Arthritis: Not Applicable 2. Height: 6 ft. 0 in. 182.9 cm. Weight: 209.0 lb. oz. 94.802 kg. Patient's BMI: 28.3 3. Vital Signs: BP: 132/85 Pulse: 93 Resp: 14 Temp: 02 Sat: ECG Mon: 4. Pain Intensity: 5 NOW 9 AT NIGHT 5. Fall Risk: Dizziness: N Needs help standing or walking: N Fallen in the last 3 months: N Fall risk comments: 6. Patient on Blood Thinner: None 7. History of Hypertension: Y 8. Opioid Therapy greater than 6 weeks: Y Opiate Contract Signed: 07/07/16 9. Risk Assessment Tool Provided: 3-L0W 10. Functional Assessment Tool: 11. Recreational Drug Use: Never Drug Type: Tobacco Use: Former Smoker Tobacco Type: Amount or Packs/day: How Many Years: Alcohol Use: Yes Frequency: Quant:
--- NOTE | 2019-04-26 11:26 | HPC ---
[facility] [address] [place] [address] PAIN MANAGEMENT CONSULTATION Name: GENESIS MARIN III Room #: REG REGLA Cifuentes#: [id number] Admission: 04/25/19 Attend Phys: Claudette Martins Discharge: Date of : 43 Report #: [id number] THIS REPORT FOR: //name// CC: Claudette Martins Calixto Staley DATE OF SERVICE: 04/25/2019 CHIEF COMPLAINT: Chronic intractable low back pain and thoracic pain. HISTORY OF PRESENT ILLNESS: This is a 73-year-old gentleman who returns to the pain clinic today for a refill of his medication. He reports a pain score of 5/10 currently, does tell me that his pain does increase later in the day. He finds the fentanyl very beneficial in controlling his pain and has been taking 0-1 hydrocodone a day. He has stopped his Dilaudid medication and is requesting refills of medicine today. The patient tells me he does have some GI constipation issues. He does take Linzess on a daily basis. This has been an ongoing problem for him for a long time. The patient tells me that his pain is located in his cot-pi-werdh back as well as occasionally in his abdomen. It is worse with standing and lying down, but the medication and reclining in a recliner are beneficial. ALLERGIES: OXYCODONE, KEFLEX, AUGMENTIN, PHENERGAN, AND REGLAN. CURRENT LIST OF MEDICATIONS: Horizant 600 mg 2 tablets daily, hydrocodone 10/325 daily, fentanyl 50 mcg patch every 48 hours, Zegerid, Linzess, testosterone, Flomax, modafinil, Cymbalta, Sinemet, atorvastatin, Mirapex, an irbesartan/hydrochlorothiazide. PQRS: 1. History of osteoarthritis in his bilateral lower extremities and his spine. He denies any rheumatoid arthritis. 2. Height is 6 feet, weight is 209, BMI is 28. 3. Vital signs: Blood pressure 132/85, pulse is 93, respirations 14, oxygen sat is 100. 4. Pain score is 5/10 currently, 9/10 at nighttime. 5. The patient denies any dizziness, does not need help walking or standing, has not fallen in the last 3 months. 6. The patient is not on any blood thinners. He does have a history of hypertension. 7. Opioid therapy is greater than 6 weeks; therefore, an opioid signed contract is on the chart. His risk assessment tool is low. Functional assessment is 45/70. 8. Recreational drug use, he denies. He is a former smoker and does drink alcohol. [address] [address] PAIN MANAGEMENT CONSULTATION Name: GENESIS MARIN [facility] Room #: REG [place] Cifuentes#: [id number] Admission: 04/25/19 Attend Phys: Claudette Martins Discharge: Date of : 43 Report #: [id number] According to the prescription monitoring system, the patient is due to fill his medications today. He tells me that he safeguards his medications. PHYSICAL EXAMINATION: GENERAL: This is a well-developed, well-nourished, well-hydrated, 73-year-old gentleman who appears his stated age. He is alert and orientated, though appears anxious at times throughout our visit today. His current pain score is 5/10. HEENT: Normocephalic, atraumatic. Extraocular eye muscles are intact. Mucous membranes are moist. MUSCULOSKELETAL: The patient walks with a slightly antalgic gait. Complains of pain in his midthoracic spine area that radiates into his lumbar spine. He denies any leg pain today. He moves from sitting to standing without any difficulty. His lower extremity strength judged to be 5/5 in all major muscle groups: ASSESSMENT: 1. Chronic intractable low back pain without radiculopathy today, though present in the past involving lumbar and thoracic spine. 2. Lumbar spondylosis, status post fusions x 3. 3. Post-laminectomy syndrome with fusion. 4. Management of high-risk medications under terms of written opioid agreement. We reviewed the fact that opiate medications are being used to provide analgesia adequate to support activities of daily living, not attempting to achieve a specific pain score on the 0-10 Visual Analog Scale. The current opiate medications are providing sufficient analgesia to allow the patient to participate in activities of daily living. The patient is not exhibiting any aberrant behavior suggestive of drug diversion. The patient is not having any adverse reactions to medications. The patient is not suffering from daytime somnolence or mental acuity changes. The patient is managing opiate-induced constipation with appropriate fjsl-yyu-fxenxem agents and dietary considerations. The patient was counseled on concern for caution with operating a motor vehicle while using opiate medications. A physical exam was performed and the patient's functional status was evaluated. All patients with back pain were advised against the bed rest greater than 4 days and were advised to return to normal activities. Pain score assessment was noted and the treatment plan was reviewed with the patient. All current medications, both prescribed and OTC were reviewed and reconciled on the electronic medical record. Tobacco screening was accomplished and smoking cessation was advised when indicated. BMI was noted and diet/exercise modification was recommended for all patients following outside normal parameters. [address] [address] PAIN MANAGEMENT CONSULTATION Name: GENESIS MARIN III Room #: REG [facility]#: [id number] Admission: 04/25/19 Attend Phys: Claudette Martins Discharge: Date of : 43 Report #: [id number] I reviewed with the patient today their responsibilities to safeguard prescription medications, reviewed their responsibility to utilize medications only as prescribed by the physician. They are to seek and receive pain medications only from 1 physician group ( [facility]). They are to use 1 pharmacy and keep the clinic informed if they change pharmacies. Their responsibilities include making followup visits in a timely fashion and to avoid abrupt discontinuation of medication usage. Their responsibilities further include bringing their medications (bottles from the pharmacy with residual pills) to the visit for possible confirmation of pill counts and the patient understands it is their responsibility to submit to random drug screens to ensure both that the medications prescribed are present, and that no other controlled substances are present. All prescriptions provided today were generated electronically. PLAN: 1. We discussed treatment options with the patient today. The patient finds the fentanyl patch beneficial in controlling his pain as well as taking 0-1 hydrocodone a day. The patient is requesting scripts for fentanyl 50 mg #15 every 48 hours, given for today and 4 months and hydrocodone 10/325, #30 for release today and [address] the patient at a high morphine mEq at 130 per day. This is a significant decrease of when he returned from [place] at 180. 2. We did talk briefly about intrathecal pump that Dr. Abdalla has been talking to him about. Dr. Pinto encouraged him to discuss that more fully with Dr. Abdalla's office. 3. The patient is recently started on Horizant. He has been taking 1 in the morning and 1 at night. I explained to him that is typically taking 2 tablets with dinner or early evening, this helps reduce daytime sleepiness, which the patient is experiencing today. The patient will change how he is taking this medication tomorrow and see if it is beneficial. He does get this medication from his neurologist. 4. The patient will return in 2 months' time period for an appointment. The patient seen in collaboration with Dr. Pinto who did see the patient as well today. <ELECTRONICALLY SIGNED> By: Claudette Martins 04/26/19 1126 [id number] Claudette Martins /nt
== END ==
LOC: PAIN 04-22 06:52
DX: M47.816 Spondylosis without myelopathy or radiculopathy, lumbar region (principal); M96.1 Postlaminectomy syndrome, not elsewhere classified; Z79.891 Long term (current) use of opiate analgesic; M43.26 Fusion of spine, lumbar region

== ENCOUNTER → 2019-06-17 | Outpatient (CLI) | payer OTHER ==
[~2019-06-17] VITALS: Ht 182.9 cm; Wt 98.6 kg
[~2019-06-17] MED LIST changes: +ATIVAN1 MG PO
[2019-06-17 13:03] VITALS: BP 128/77
--- NOTE | 2019-06-17 13:18 | NUR ---
Pain Clinic Assessment: 1. History of Osteoarthritis: B/L KNEES History of Rheumatoid Arthritis: Not Applicable 2. Height: 6 ft. 0 in. 182.9 cm. Weight: 217.4 lb. oz. 98.612 kg. Patient's BMI: 29.5 3. Vital Signs: BP: 128/77 Pulse: 94 Resp: 16 Temp: 02 Sat: 100 ECG Mon: 4. Pain Intensity: 1-NOW 7-NIGHT 5. Fall Risk: Dizziness: N Needs help standing or walking: N Fallen in the last 3 months: N Fall risk comments: 6. Patient on Blood Thinner: None 7. History of Hypertension: Y 8. Opioid Therapy greater than 6 weeks: Y Opiate Contract Signed: 07/07/16 9. Risk Assessment Tool Provided: 3-L0W 10. Functional Assessment Tool: 11. Recreational Drug Use: Never Drug Type: Tobacco Use: Former Smoker Tobacco Type: Amount or Packs/day: How Many Years: Alcohol Use: Yes Frequency: Daily Quant: 1 BEER
--- NOTE | 2019-06-18 09:28 | HPC ---
[facility] [address] [address] PAIN MANAGEMENT CONSULTATION Name: GENESIS MARIN III [facility]: [facility] [id number] Admission: 06/17/19 Attend Phys: Claudette Martins Discharge: Date of : 43 Report #: [id number] THIS REPORT FOR: //name// CC: Claudette Martins Calixto Staley DATE OF SERVICE: 06/17/2019 CHIEF COMPLAINT: Chronic intractable low back pain and thoracic pain. HISTORY OF PRESENT ILLNESS: This is a 74-year-old gentleman who returns to the pain clinic today for a refill of his medications. He reports a pain score today of 1/10 in the morning. He tells me it does increase as the day progresses and it averages 7/10 in the evening. He finds that the fentanyl is very beneficial in controlling his pain that he experiences across his low back. It is aching spasms, constant pain, that is worse with lying down, but his medication and heat is very beneficial. He denies problems with constipation that is not relieved by MiraLax. He denies any daytime sleepiness. The patient tells me he has been very busy caring for his since we saw him last. She broke her ankle and also had a total knee replacement, so he has been very active in her care. He also reports that he will be leaving to go to [place] on 07/13/2019, returning around [place] time and then returning back to [place] until December. He reports he will be flying back for visits here for medication management instead of seeing the pain doctor he has in [place] this year. ALLERGIES: OXYCODONE, KEFLEX, AUGMENTIN, PHENERGAN, AND REGLAN. CURRENT LIST OF MEDICATIONS: Ativan 1 mg 3 times a day, fentanyl 50 mcg patch q.48 hours, hydrocodone 10/325 one daily p.r.n., Horizant 600 mg b.i.d., Zegerid daily, testosterone daily, modafinil 200 mg daily, Cymbalta 30 mg daily, Sinemet 25/100 three times a day, amlodipine 5 mg daily, Mirapex 0.25 mg t.i.d. and Avalide 300/12.5 at bedtime. PQRS: 1. He has a history of osteoarthritis in his lower extremities and his lumbar spine. Denies any rheumatoid arthritis. 2. Height is 6 feet, weight is 217, BMI is 29. 3. Vital signs 128/77, pulse is 94, respirations 16, oxygen sat is 100. 4. Pain score is 1-7. 5. Denies dizziness, does not need help walking or standing, has not fallen in the last 3 months. 6. The patient is not on any blood thinners, but does take medicine for hypertension. 7. Opioid therapy is greater than 6 weeks; therefore, [place] [address] PAIN MANAGEMENT CONSULTATION Name: GENESIS MARIN III Room #: TABITHA Cifuentes#: [id number] Admission: 06/17/19 Attend Phys: Claudette Martins Discharge: Date of : 43 Report #: [id number] is on the chart. 8. Risk assessment tool is low. Functional assessment is 45/70. 9. Recreational drug use, he denies. He is a former smoker and does drink 1 beer a day. According to the prescription monitoring system, the patient is filling appropriately for his medications. He is not due quite to fill his medicines today. There is a recent drug screen on the chart as well. We will repeat that later this year. PHYSICAL EXAMINATION: GENERAL: This is a well-developed, well-nourished, well-hydrated 74-year-old gentleman who appears his stated age, placing his current pain score from 1-7 today. HEENT: Normocephalic, atraumatic. Extraocular eye muscles are intact. Mucous membranes are moist. MUSCULOSKELETAL: The patient walks with a slightly antalgic gait. His pain radiates from his mid thoracic spine into his lumbar spine region, with no radiculopathy today. He is able to move from sitting to standing without any difficulty. His lower extremity strength judged to be 5/5 in all major muscle groups. He has a modified ganglion, is positive for axial back pain. ASSESSMENT: 1. Chronic intractable low back pain without radiculopathy today involving the thoracic and lumbar spines. 2. Lumbar spondylosis, status post fusions x 3. 3. Post-laminectomy syndrome with fusions. 4. Management of high-risk medications under terms of written opioid agreement. We reviewed the fact that opiate medications are being used to provide analgesia adequate to support activities of daily living, not attempting to achieve a specific pain score on the 0-10 Visual Analog Scale. The current opiate medications are providing sufficient analgesia to allow the patient to participate in activities of daily living. The patient is not exhibiting any aberrant behavior suggestive of drug diversion. The patient is not having any adverse reactions to medications. The patient is not suffering from daytime somnolence or mental acuity changes. The patient is managing opiate-induced constipation with appropriate kvia-arx-vsircuq agents and dietary considerations. The patient was counseled on concern for caution with operating a motor vehicle while using opiate medications. A physical exam was performed and the patient's functional status was evaluated. All patients with back pain were advised against the bed rest greater than 4 days and were advised to return to normal activities. Pain score assessment was noted and the treatment plan was reviewed with the patient. All current medications, both prescribed and OTC were reviewed and reconciled on the [address] [address] PAIN MANAGEMENT CONSULTATION Name: GENESIS MARIN III Room #: [facility] [id number] Admission: 06/17/19 Attend Phys: Claudette Martins Discharge: Date of : 44 Report #: [id number] electronic medical record. Tobacco screening was accomplished and smoking cessation was advised when indicated. BMI was noted and diet/exercise modification was recommended for all patients following outside normal parameters. I reviewed with the patient today their responsibilities to safeguard prescription medications, reviewed their responsibility to utilize medications only as prescribed by the physician. They are to seek and receive pain medications only from 1 physician group ( [facility]). They are to use 1 pharmacy and keep the clinic informed if they change pharmacies. Their responsibilities include making followup visits in a timely fashion and to avoid abrupt discontinuation of medication usage. Their responsibilities further include bringing their medications (bottles from the pharmacy with residual pills) to the visit for possible confirmation of pill counts and the patient understands it is their responsibility to submit to random drug screens to ensure both that the medications prescribed are present, and that no other controlled substances are present. All prescriptions provided today were generated electronically. PLAN: 1. We discussed treatment options with the patient today. The patient is doing quite well on his current regimen and finds it very beneficial. He has been able to keep quite active this summer, caring for his , with minimal pain due to the fentanyl patch of 50 mcg and using very little hydrocodone. In fact, he still has his 4-week prescription yet to fill, so today, we will rewrite medications of fentanyl 50 mcg, #15, every 48 hours, given for today and 4-week release. 2. Hydrocodone 10/325, #30, to release in 4 weeks. 3. We did discuss briefly transforaminal epidural steroid injections. The patient tells me he was hospitalized earlier this spring and the doctor there did mention it. I explained to him on a model a transforaminal steroid injection versus a lumbar epidural steroid injection. If his pain does increase, I explained to him that Dr. Sean Pinto could easily perform this procedure for him to help with his back pain. 4. The patient is seen today in collaboration with Dr. Sean Pinto. <ELECTRONICALLY SIGNED> By: Claudette Martins 06/18/19 0928 [id number] Claudette Martins /gita
== END ==
LOC: PAIN 06:53
DX: M47.26 Other spondylosis with radiculopathy, lumbar region (principal); M96.1 Postlaminectomy syndrome, not elsewhere classified; Z79.891 Long term (current) use of opiate analgesic

== ENCOUNTER → 2019-08-12 | Outpatient (CLI) | payer OTHER ==
[~2019-08-12] VITALS: Ht 182.9 cm; Wt 98.8 kg
[2019-08-12 15:07] VITALS: BP 126/64
--- NOTE | 2019-08-12 15:25 | NUR ---
Pain Clinic Assessment: 1. History of Osteoarthritis: B/L KNEES History of Rheumatoid Arthritis: DENIES 2. Height: 6 ft. 0 in. 182.9 cm. Weight: 217.8 lb. oz. 98.794 kg. Patient's BMI: 29.5 3. Vital Signs: BP: 126/64 Pulse: 91 Resp: 16 Temp: 02 Sat: 100 ECG Mon: 4. Pain Intensity: 4 5. Fall Risk: Dizziness: N Needs help standing or walking: N Fallen in the last 3 months: N Fall risk comments: 6. Patient on Blood Thinner: None 7. History of Hypertension: Y 8. Opioid Therapy greater than 6 weeks: Y Opiate Contract Signed: 07/07/16 9. Risk Assessment Tool Provided: 3-L0W 10. Functional Assessment Tool: 11. Recreational Drug Use: Never Drug Type: Tobacco Use: Former Smoker Tobacco Type: Amount or Packs/day: How Many Years: Alcohol Use: Yes Frequency: Daily Quant: BEER
--- NOTE | 2019-08-13 09:17 | HPC ---
[facility] [address] [address] PAIN MANAGEMENT CONSULTATION Name: GENESIS MARIN III Room #: REG [facility] Cifuentes#: [id number] Admission: 08/12/19 Attend Phys: Claudette Martins Discharge: Date of : 43 Report #: [id number] THIS REPORT FOR: //name// CC: Claudette Pinto MD DATE OF SERVICE: 08/12/2019 CHIEF COMPLAINT: Chronic intractable low back pain and thoracic pain. HISTORY OF PRESENT ILLNESS: This is a 74-year-old gentleman who returns to the pain clinic today for refill of his fentanyl patches that he uses to help treat his ongoing low back pain and thoracic pain. He reports a pain score of 4/10 today. He states he is doing quite well. The medication enables him to be quite active. He is taking 1 hydrocodone a day, occasionally 2 on bad days, when he is busy golfing or more active. He denies problems with significant constipation that is not controlled by MiraLax and he does not suffer from daytime sleepiness. The patient also would like to discuss 3 months of medications to be given to him in August prior to going back to [place] where he spends the winter in [place]. He is not planning on seeing his pain doctor that he had in [place] in the past. He believes he will fly back to [place] if he needs to have medications refilled during his time there, if he is unable to get a 3-month supply of medications from his pharmacy. The patient is also considering an intrathecal pump by Dr. Fili Abdalla, he had discussed this in the past. He is going to consider this in January after he returned from [place]. Today, he would just like refills of his pain medications. ALLERGIES: OXYCODONE, KEFLEX, AUGMENTIN, PROMETHAZINE, AND REGLAN. CURRENT LIST OF MEDICATIONS: Hydrocodone 10/325 p.r.n., fentanyl patch 50 mcg every 48 hours, Ativan half to one tablet p.r.n. Horizant 600 mg b.i.d., Zegerid wngy-yyu-yhchwoe p.r.n., testosterone daily, Provigil 200 mg daily, Cymbalta 30 mg daily, Sinemet 25/100 daily, Norvasc 5 mg daily, Mirapex 0.25 mg t.i.d. and Avalide 300/12.5 mg at bedtime. PQRS: 1. He has osteoarthritis in his bilateral knees and spine. Denies any rheumatoid arthritis. 2. Height is 6 feet, weight is 217, BMI is 29. 3. Vital signs 126/64, pulse is 91, respirations 16, oxygen sat is 100. [address] [address] PAIN MANAGEMENT CONSULTATION Name: GENESIS MARIN III Room #: REG [facility] [id number] Admission: 08/12/19 Attend Phys: Claudette Martins Discharge: Date of : 44 Report #: [id number] 4. Pain score is 4/10. 5. Denies dizziness, does not need help walking or standing, has not fallen in the last 3 months. 6. The patient is not on any blood thinners, but does take medicine for hypertension. 7. Opioid therapy is greater than 6 weeks; therefore, an opioid signed contract is on the chart. Risk assessment tool is low. Functional assessment is 45/70. 8. Recreational drug use, he denies. He is a former smoker and occasionally drinks alcohol. According to the prescription monitoring system, the patient is due today to fill his medications. There was some aberrant behavior noted. The police report for lost script taking care of him in June, but he is on time today. I did discuss that lorazepam opioid combination though he has not filled any Ativan in quite some time according to the prescription monitoring system: The patient is instructed to use these sparingly together. PHYSICAL EXAMINATION: GENERAL: This is alert and orientated, well-developed, well-nourished, well-hydrated 74-year-old male who appears his stated age, placing his current pain score at 4/10. HEENT: Normocephalic, atraumatic. Extraocular eye muscles are intact. Mucous membranes are moist. MUSCULOSKELETAL: He has tenderness in his mid thoracic spine that radiates into his lumbar region. Denies leg pain today. He moves from sitting to standing without any difficulty. He walks with a slightly antalgic gait. Lower extremity strength judged to be 5/5 in all major muscle groups. IMPRESSION: 1. Chronic intractable low back pain without radiculopathy presently. 2. Thoracic pain. 3. Lumbar spondylosis, status post fusions x 3. 4. Post-laminectomy syndrome. 5. Management of high risk medications under terms of written opioid agreement. We reviewed the fact that opiate medications are being used to provide analgesia adequate to support activities of daily living, not attempting to achieve a specific pain score on the 0-10 Visual Analog Scale. The current opiate medications are providing sufficient analgesia to allow the patient to participate in activities of daily living. The patient is not exhibiting any aberrant behavior suggestive of drug diversion. The patient is not having any adverse reactions to medications. The patient is not suffering from daytime somnolence or mental acuity changes. The patient is managing opiate-induced constipation with appropriate lqyx-rnd-bzkdvom agents and dietary considerations. The patient was counseled on concern for caution with operating a motor vehicle while using opiate medications. [facility] [address] [place] [address] PAIN MANAGEMENT CONSULTATION Name: MARINGENESIS III Room #: REG [facility]#: [id number] Admission: 08/12/19 Attend Phys: Claudette Martins Discharge: Date of : 43 Report #: [id number] PLAN: 1. We discussed treatment options with the patient today. The patient has been in need of a refill of his fentanyl 50 mcg patch that he takes every 8 hours. He does have a hydrocodone script at the pharmacy. He does take these on a sparingly basis. According to the prescription monitoring system, the patient's morphine mEq is quite high at 130 morphine mEq per day, but he is quite active and this is a decrease over the previous medications. We will e-sign his script for one month today. 2. We did talk about his recent trip to [place]. He is to ask his pharmacy if he is able to fill a 3 month prescription as well as his insurance company, if they will allow this, we will write this medication with the understanding that he safeguards his meds, keep them locked up because of this is 3 months of narcotics that we will not replace or refill, if they are lost or stolen. The patient verbalizes understanding. He will call our office next week and we will determine if this is a feasible option. If not the patient will need to return to our clinic for refills throughout the winter months since [place] will not honor out of state prescriptions. 3. We did talk briefly about intrathecal pump. The patient will be calling [facility] to set up an appointment for his return in the spring. I explained to him that Dr. Abdalla and [facility] would manage his pump not Dr. Pinto and that we would decrease him off his fentanyl patch. He verbalizes understanding. His goal is to have the pump with no other medicines. 4. The patient is seen in collaboration with Dr. Sean Pinto today. <ELECTRONICALLY SIGNED> By: Claudette Martins 08/13/19 0917 [id number] [id number] Claudette Martins /gita
== END ==
LOC: PAIN 10:16
DX: M47.816 Spondylosis without myelopathy or radiculopathy, lumbar region (principal); M96.1 Postlaminectomy syndrome, not elsewhere classified; M54.6 Pain in thoracic spine; Z88.8 Allergy status to other drugs, medicaments and biological substances; Z88.1 Allergy status to other antibiotic agents; Z79.899 Other long term (current) drug therapy

== ENCOUNTER → 2020-01-16 | Outpatient (CLI) | payer OTHER ==
--- NOTE | 2020-01-17 07:34 | HPC ---
[facility] [address] [place] [address] PAIN MANAGEMENT CONSULTATION Name: TOMASGENESIS Arora III Room #: REG [facility]#: [id number] Admission: 01/16/20 Attend Phys: Claudette Martins Discharge: Date of : 44 Report #: [id number] THIS REPORT FOR: cc: Calixto Staley MD, Paul Piezas MD Hocker, Amanda CNS ~ CC: Sean Pinto MD DATE OF SERVICE: 01/16/2020 This is a telemedicine appointment via audiovisual from 9:30-9:47 with the patient due to his recent return from [place] and under quarantine. CHIEF COMPLAINT: Chronic intractable low back pain and thoracic pain. HISTORY OF PRESENT ILLNESS: This is a 74-year-old gentleman who I am speaking with via audiovisual today due to a telemed appointment since he is quarantine since he recently returned from [place]. He has been there for the past 3 months [place] he [place]. He reports in his time in [place], his pain has slowly been increasing. He states he had the Alvogen brand of fentanyl patches. He feels that those are not as beneficial as the Mallinckrodt brand. He also reports that he fell several times when he was in [place] and that increased his low back and thoracic pain. Today, he is reporting a pain score at 3/10 in the morning, but it progresses to an 8/10 in the nighttime hours. He reports he has a spasm, aching and occasionally sharp pain, worse with lying down. The medications are somewhat beneficial as well as heat. He has been also taking an average of 3 hydrocodone pain pills a day since he has been having this increase in pain. The patient reports to me that he has spoken with Dr. Abdalla's office. He is scheduled for an MRI some time within the next week to proceed with an intrathecal pump. The patient had discussed with Dr. Abdalla's office this therapy last fall and was on hold until he returned from his winter in [place]. He would like to speak with Dr. Pinto regarding intrathecal pump treatment as well. Today, he would like refills of his medications. ALLERGIES: OXYCODONE, KEFLEX, AUGMENTIN, PROMETHAZINE, AND REGLAN. CURRENT LIST OF MEDICATIONS: Hydrocodone 10/325 p.r.n., fentanyl patch 50 mcg every 48 hours, Ativan Horizant, Zegerid, testosterone, Provigil, Cymbalta, Sinemet, Norvasc, Mirapex and Avalide. PQRS: 1. He has osteoarthritis of his lumbar spine as well as [place] [address] PAIN MANAGEMENT CONSULTATION Name: GENESIS MARIN III Room #: REG REG[facility] Cifuentes#: [id number] Admission: 01/16/20 Attend Phys: Claudette Martins Discharge: Date of : 43 Report #: [id number] any rheumatoid arthritis. Height, weight, and vital signs are deferred due to a telemed appointment. 2. Pain score 3/10 today. 3. Denies dizziness, does not need help walking and standing, but he has fallen in the last 3 months. 4. The patient is not on any blood thinners, but does take medicine for hypertension. 5. Opiate therapy is greater than 6 weeks. Therefore, an opioid signed contract is on the chart. Risk assessment is low. Functional assessment is 45/70. 6. Recreational drug use, he denies. He is a former smoker and occasionally drinks alcohol. According to the prescription monitoring system, the patient refilled his last prescription in August, which was a 3-month supply prior to going to [place]. His morphine mEq is quite high at 150 morphine mEq according to the CDC guidelines. PHYSICAL EXAMINATION: GENERAL: This is a review of systems due to a telemed appointment since it is audiovisual, the patient is alert and orientated, answering all my questions. Placing his pain score today at 3/10. HEENT: Normocephalic, atraumatic. Extraocular eye muscles are intact. MUSCULOSKELETAL: The patient reports tenderness in his mid spine that radiates into his lumbar region. He is ambulating throughout his house. Looks like he has an antalgic gait. He moves from the sitting to standing position without difficulty. IMPRESSION: 1. Chronic intractable low back pain without radiculopathy presently. 2. Thoracic pain. 3. Lumbar spondylosis, status post fusions x 3. 4. Post-laminectomy syndrome. 5. Management of high risk medications under terms of written opioid agreement. We reviewed the fact that opiate medications are being used to provide analgesia adequate to support activities of daily living, not attempting to achieve a specific pain score on the 0-10 Visual Analog Scale. The current opiate medications are providing sufficient analgesia to allow the patient to participate in activities of daily living. The patient is not exhibiting any aberrant behavior suggestive of drug diversion. The patient is not having any adverse reactions to medications. The patient is not suffering from daytime somnolence or mental acuity changes. The patient is managing opiate-induced constipation with appropriate txih-oer-fvawlpu agents and dietary considerations. The patient was counseled on concern for caution with operating a motor vehicle while using opiate medications. [facility] [address] [place] [address] PAIN MANAGEMENT CONSULTATION Name: GENESIS MARIN III Room #: [facility]#: [id number] Admission: 01/16/20 Attend Phys: Claudette Martins Discharge: Date of : 43 Report #: [id number] PLAN: 1. We discussed treatment options with the patient today. The patient reports his pain has increased while he was in [place]. He unfortunately was not able to get the Mallinckrodt fentanyl patch brand that he feels are more beneficial. He has been using Alvogen brand. This does not adhere to his skin as well. He feels this has been a cause of some of his increased pain, though he has fallen several times while in [place]. He is going to discuss having an intrathecal pump placed by Dr. Abdalla which has been the plan since last fall, to start the process for this interventional therapy. 2. The patient is scheduled for an MRI of the lumbar and thoracic spine within the next week, then he would like an appointment with Dr. Sean Pinto to discuss the intrathecal pump in more depth though Dr. Abdalla would be the physician performing the trial as well as the implant if it was a successful trial. 3. We will refill his fentanyl patches at 50 mcg #15. The patient uses 1 patch every 48 hours for today and 4 weeks supply. We will try to obtain the Mallinckrodt brand for these patches for him. 4. The patient does take hydrocodone 10/325. He has asked for an increase to 3 tablets every day, which he finds more beneficial than 2. Dr. Sean Pinto is agreeable with this and will send electronically #90 for today and 4-week release. 5. The patient reminded that he has an appointment 01/[address] Pinto and to bring his MRI disk and report with him for review by Dr. Sean Pinto. This patient was seen via telemed in collaboration with Dr Sean Pinto. <ELECTRONICALLY SIGNED> By: Claudette Martins 01/17/20 0734 [id number] [id number] Claudette Martins /nt
== END ==
LOC: TELEPC 07:15
DX: M47.816 Spondylosis without myelopathy or radiculopathy, lumbar region (principal); M54.6 Pain in thoracic spine; M96.1 Postlaminectomy syndrome, not elsewhere classified; F11.20 Opioid dependence, uncomplicated; Z88.1 Allergy status to other antibiotic agents; Z88.5 Allergy status to narcotic agent; Z91.048 Other nonmedicinal substance allergy status; Z88.8 Allergy status to other drugs, medicaments and biological substances; Z79.899 Other long term (current) drug therapy

== ENCOUNTER → 2020-01-27 | Outpatient (CLI) | payer OTHER ==
[~2020-01-27] VITALS: Ht 182.9 cm; Wt 100.4 kg
[2020-01-27 10:39] VITALS: BP 138/87
--- NOTE | 2020-01-27 11:01 | NUR ---
Pain Clinic Assessment: 1. History of Osteoarthritis: B/L KNEES History of Rheumatoid Arthritis: DENIES 2. Height: 6 ft. 0 in. 182.9 cm. Weight: 221.4 lb. oz. 100.427 kg. Patient's BMI: 30.0 3. Vital Signs: BP: 138/87 Pulse: 95 Resp: 16 Temp: 02 Sat: 97 ECG Mon: 4. Pain Intensity: 0 5. Fall Risk: Dizziness: N Needs help standing or walking: N Fallen in the last 3 months: N Fall risk comments: 6. Patient on Blood Thinner: None 7. History of Hypertension: Y 8. Opioid Therapy greater than 6 weeks: Y Opiate Contract Signed: 07/07/16 9. Risk Assessment Tool Provided: 3-L0W 10. Functional Assessment Tool: 11. Recreational Drug Use: Never Drug Type: Tobacco Use: Former Smoker Tobacco Type: Amount or Packs/day: How Many Years: Alcohol Use: Yes Frequency: Quant:
--- NOTE | 2020-01-28 18:18 | HPC ---
[facility] [place] [address] PAIN MANAGEMENT CONSULTATION Name: GENESIS MARIN Maite COLE Room #: REG REGLA BecerraBulmaroKatieBulmaro#: [id number] Admission: 01/27/20 Attend Phys: Sean Pinto MD Discharge: Date of : 43 Report #: [id number] THIS REPORT FOR: cc: Calixto Staley MD, Paul Piezas MD Morgan, Richard L. MD ~ CC: Fili Pinto DATE OF SERVICE: 01/27/2020 Followup visit for medication management. The patient was seen by teleconference by Claudette Martins APN on 01/16/2020. His prescriptions were renewed on that visit. He returns today to discuss the possibility of an intrathecal pump. This has been tried before at Dr. Abdalla's office, but apparently they had difficulty placing the intrathecal catheter for a trial. He did not go further, but is here wondering about my opinions. I spent 25 minutes with the patient and his reviewing the process once again. We have had this discussion on many occasions. I yessenia diagrams and pictures of the pump, showed him the actual pump itself as well as the catheter, talked about placement, complications related to surgical placement and incidence. Discussed the 7 possible medications for placement of the intrathecal pump, morphine, hydromorphone, baclofen, Prialt, fentanyl, clonidine and bupivacaine. We have patients who are on various combinations of these medicines. Finding a proper regimen for each patient may take some trial and error and multiple return visits to the clinic. We are always seeking to find the right recipe of medications at the right dose for each patient with the lowest risks. I explained to them that this is not an ideal regimen and some of our patients also use oral medications, but oftentimes quite a bit less. Many of our patients have been able to go off of opioids altogether. There is some appeal to this process for him and his . He would have to undergo a trial. Again, I would be happy to provide that trial for him if necessary. We reviewed the use of [place]ro[place] patches, which he feels is necessary and the others tend to fall off. I spent some time reviewing with him proper use of the fentanyl patches, make sure they were not using heating pad and other things that might increase rapid absorption. I recommend they also change to placement of the patch from his back to his upper arm, which reportedly he can keep close [address] [address] PAIN MANAGEMENT CONSULTATION Name: GENESIS MARIN Maite [facility] Room #: REG HUNTERCasper Cifuentes#: [id number] Admission: 01/27/20 Attend Phys: Sean Pinto MD Discharge: Date of : 43 Report #: [id number] track of it. He will use his hydrocodone for breakthrough as described. He was told to bring his MRI disk with him to his appointment, but I did not have it today and I was unable to review those films. This was a consultation only visit. We did spend about 25 minutes to discuss pros and cons and I answered many, many questions regarding intrathecal therapies for them. I think the conclusion at the end of today's visit was that they will continue on with the current patches and plans and breakthrough medications, carefully using them as we have described. Follow up planned in 1-2 months for renewal of medicines. <ELECTRONICALLY SIGNED> By: Sean Pinto MD 01/28/20 1818 [id number] [id number] Sean Pinto MD /nt
== END ==
LOC: PAIN 06:52
DX: Z76.0 Encounter for issue of repeat prescription (principal)

== ENCOUNTER → 2020-05-14 | Outpatient (CLI) | payer OTHER ==
[~2020-05-14] VITALS: Ht 182.9 cm; Wt 98.8 kg
[~2020-05-14] MED LIST changes: +FLEXERIL PO; +MOVANTIK25 MG PO
[2020-05-14 13:41] VITALS: BP 153/99
--- NOTE | 2020-05-14 13:57 | NUR ---
Pain Clinic Assessment: 1. History of Osteoarthritis: B/L KNEES History of Rheumatoid Arthritis: DENIES 2. Height: 6 ft. 0 in. 182.9 cm. Weight: 217.8 lb. oz. 98.794 kg. Patient's BMI: 29.5 3. Vital Signs: BP: 153/99 Pulse: 97 Resp: 14 Temp: 02 Sat: 95 ECG Mon: 4. Pain Intensity: 1 now 8-9 in pm 5. Fall Risk: Dizziness: N Needs help standing or walking: N Fallen in the last 3 months: N Fall risk comments: 6. Patient on Blood Thinner: None 7. History of Hypertension: Y 8. Opioid Therapy greater than 6 weeks: Y Opiate Contract Signed: 07/07/16 9. Risk Assessment Tool Provided: 3-L0W 10. Functional Assessment Tool: 11. Recreational Drug Use: Never Drug Type: Tobacco Use: Former Smoker Tobacco Type: Amount or Packs/day: How Many Years: Alcohol Use: Yes Frequency: Quant:
--- NOTE | 2020-05-15 09:22 | HPC ---
[facility] [address] [address] PAIN MANAGEMENT CONSULTATION Name: TOMASGENESIS Arora III Room #: REG [facility] MariamBulmaroKatieBulmaro#: [id number] Admission: 05/14/20 Attend Phys: Claudette Martins Discharge: Date of : 43 Report #: [id number] THIS REPORT FOR: cc: Calixto Staley MD, Paul Piezas MD Hocker, Amanda CNS ~ CC: Sean Pinto MD DATE OF SERVICE: 05/14/2020 CHIEF COMPLAINT: Chronic intractable low back pain and thoracic pain. HISTORY OF PRESENT ILLNESS: This is a 74-year-old gentleman who returns to the pain clinic today complaining of increasing pain in his lower back. He reports he has some pain in his thoracic area as well. It is an aching spasm pain that is worse at night. He reports that during the day, his pain score is 1/10. Utilizing his fentanyl patch that at nighttime when he is sleeping, it can be as high as a 9/10. When he lies down, his pain does increase. He does use heat as well as his medications and finds them beneficial throughout the day. He is here requesting changes in his medication to help alleviate some of his pain. The patient does report significant constipation issues. He takes MiraLax 2 scoops 2 times a day as well as 4 stool softeners a day and still has issues with ongoing constipation. The patient reports that he is not going to have intrathecal pump placed. He and Dr. Sean Pinto did discuss in length in January and at that time, he found that it was felt like it was not going to be as beneficial as he was hopeful for. He is wondering today if maybe he can have a caudal injection by Dr. Sean Pinto. He had them performed in the past. Per the records, it looks like it has been greater than 3 years. He is wondering since he is having increasing pain, if maybe that would be an option as well. ALLERGIES: OXYCODONE, KEFLEX, AUGMENTIN, AMOXICILLIN, PROMETHAZINE, AND REGLAN. CURRENT MEDICATIONS: Flomax, Duragesic patch 50 mcg every 48 hours, hydrocodone 10/325, very sparingly, lorazepam, Horizant 600 mg b.i.d., Zegerid, Provigil, Cymbalta, Sinemet, amlodipine, irbesartan/hydrochlorothiazide, MiraLax and stool softener. PQRS: 1. He has osteoarthritis in his knees. Denies any rheumatoid arthritis. 2. Height is 6 feet, weight is 217, BMI is 29. 3. Vital signs, blood pressure 153/99, pulse is 97, respirations 14, and oxygen sat is 95%. 4. Pain score is 1/10 currently as high as 8-9/10 at night. [facility] [address] [place] [address] PAIN MANAGEMENT CONSULTATION Name: GENESIS MARIN III [facility] #: [facility] [id number] Admission: 05/14/20 Attend Phys: Claudette Martins Discharge: Date of : 44 Report #: [id number] 5. Denies dizziness, does not need help walking or standing, has not fallen in the last 3 months. 6. The patient is not on any blood thinners, but does take medicine for hypertension. 7. Opioid therapy is greater than 6 weeks; therefore, an opioid signed contract is on the chart. 8. His risk assessment is low. Functional assessment is 45/70. 9. Recreational drug use, he denies. He is not a smoker and does drink alcohol. According to the prescription monitoring system, he is due to fill his fentanyl patches and according to the records; he has not filled one of his hydrocodone scripts that we did provide him in January. His morphine mEq is quite high at 200 MME per day according to the CDC guidelines based on the conversion of fentanyl. PHYSICAL EXAMINATION: GENERAL: This is alert and orientated, slightly nervous acting 74-year-old gentleman who appears his stated age, placing his current pain score from 1-9/10. HEENT: Normocephalic, atraumatic. Extraocular eye muscles are intact. He is wearing a mask. MUSCULOSKELETAL: Complains of tenderness in his thoracic region as well as in his lumbar spine, does not radiate into his legs presently. His lower extremity strength judged to be 5/5 in all major muscle groups. Does have tightness in his musculature, in his lumbosacral region. The patient is able to move without difficulty from the chair to standing position. IMPRESSION: 1. Chronic intractable low back pain without radiculopathy presently. 2. Thoracic pain. 3. Lumbar spondylosis, status post fusion x 3. 4. Post-laminectomy syndrome. 5. Management of high risk medications under terms of written opioid agreement. 6. Opioid-induced constipation. We reviewed the fact that opiate medications are being used to provide analgesia adequate to support activities of daily living, not attempting to achieve a specific pain score on the 0-10 Visual Analog Scale. The current opiate medications are providing sufficient analgesia to allow the patient to participate in activities of daily living. The patient is not exhibiting any aberrant behavior suggestive of drug diversion. The patient is not having any adverse reactions to medications. The patient is not suffering from daytime somnolence or mental acuity changes. The patient is managing opiate-induced constipation with appropriate glpx-nds-itznymr agents and dietary considerations. The patient was counseled on concern for caution with operating a motor vehicle while using opiate medications. [facility] [address] [place] [address] PAIN MANAGEMENT CONSULTATION Name: TOMASGENESIS III Room #: [facility]#: [id number] Admission: 05/14/20 Attend Phys: Claudette Martins Discharge: Date of : 43 Report #: [id number] PLAN: 1. We discussed treatment options with this patient today. He is requesting an increase in his fentanyl. I explained to him that if we did increase his fentanyl patch, he would be sedated during the day when he does have very minimal pain. He agreed that may not be the best option. After a lengthy discussion we decided that he should try to take his hydrocodone on a more scheduled basis in the evening and nighttime use to see if this alleviates some of his pain. He verbalizes understanding. He will attempt to take it at 8 p.m. again around 11:00 p.m. and then if needed during the middle of the night if he awakens. Scripts will be sent for his fentanyl 50 mcg patch #15. He does take these every 48 hours for today and 4-week release. Dr. Sean Pinto will send his hydrocodone #90 for 4-week supply. He still has medication at the pharmacy that he has not filled of his hydrocodone. 2. We discussed his opioid-induced constipation. He does take MiraLax 2 scoops twice a day as well as 4 stool softeners daily and still complains of constipation. I believe it is beneficial to try the Movantik 25 mg once a day, he may find that he still needs some MiraLax, but hopefully will be able to decrease this use as I believe his constipation is a result of his opioids. 3. The patient is requesting a prescription for Flexeril for his muscle tightness in his lower back, in the past he had been on other spasmodic medications such as Soma. We will try Flexeril 10 mg, #60 send with 1 refill. 4. We did discuss a caudal injection performed by Dr. Sean Pinto. The patient does not have a radiculopathy presently, but these injections have been beneficial in reducing some of his pain in the past. The patient is scheduled for an appointment on 05/28/[address] Sean Pinto. 5. The patient is seen in collaboration with Dr. Sean Pinto who agreed upon the plan of care. <ELECTRONICALLY SIGNED> By: Claudette Martins 05/15/20 0922 [id number] [id number] Claudette Martins /gita
== END ==
LOC: PAIN 10:34
PROVIDERS: ATTEND Clinical Nurse Specialist Adult Health
DX: M47.816 Spondylosis without myelopathy or radiculopathy, lumbar region (principal); M96.1 Postlaminectomy syndrome, not elsewhere classified; K59.03 Drug induced constipation; G89.29 Other chronic pain; Z88.8 Allergy status to other drugs, medicaments and biological substances; Z79.899 Other long term (current) drug therapy

== ENCOUNTER → 2020-06-15 | Outpatient (CLI) | payer OTHER ==
[~2020-06-15] VITALS: Ht 182.9 cm; Wt 99.7 kg
[~2020-06-15] MED LIST changes: +BACLOFEN 10MG T10 MG PO; +BELSOMRA20 MG PO
--- NOTE | ~2020-06-15 | HPC ---
[facility] [address] [place] [address] PAIN MANAGEMENT CONSULTATION Name: GENESIS MARIN Maite COLE Room #: REG REGLA BecerraBulmaroKatieBulmaro#: [id number] Admission: 06/15/20 Attend Phys: Sean Pinto MD Discharge: Date of : 44 Report #: [id number] THIS REPORT FOR: cc: Calixto Staley MD, Paul Piezas MD Morgan, Richard L. MD ~ CC: Milton Pinto DATE OF SERVICE: 06/15/2020 CHIEF COMPLAINT: Lumbosacral pain. The patient is a longstanding patient of our clinic. He has a history of chronic pain, is well documented through his many visits. He has had problems with his spine dating back to 2011. Over the course of the last 8 years, he has had multiple procedures, consultations and surgeries. He has had 3 previous back surgeries with extensive fusions extending fro m T11-S1 with both posterior and anterior hardwared His pain management has been challenging over the years. In addition to surgeries and multiple epidural injections he's seen other physicians including Dr. Dueñas at [facility] who has tried radiofrequency and scs TRIAL with limited benefits. Most of his pain currently is in his lumbosacral segment, but given his past history is not too bad! He reports getting up in the morning with pain but with pain after a difficult time getting to sleep. Unfortunately he has to sleep in a recliner because he cannot assume the supine position. By about 1000 he feels better. He is able to function well throughout the day, complaining of little to no pain until bedtime. He has had to give up golf and other activities, but for the most part, pain control has been good with current medicine regimen which has been well titrated. We see him regularly as part of our opioid medication management program. He does not take any benzodiazepines at this time but is on some polypharmacy through several physicians including me. We reviewed these meds. I reviewed his prescription drug monitoring program information and there are no unexpected entries. He is on a high MME primarily due to use of fentanyl patch as a baseline medication. His current daily dose of opioid is fentanyl 50 mcg patch q. 48 hours due to duration of response and hydrocodone 10/325, which he takes only for breakthrough 1-3 tablets per day. He has seen at 2-month intervals. Other centrally acting medications include Belsomra, Horizant ER and modafinil prescribed by physicians, Dr. Staley and Nava Anne, neurologist at [address] [address] PAIN MANAGEMENT CONSULTATION Name: MARINGENESIS BURTON [facility] Room #: REG [facility] Vane#: [id number] Admission: 06/15/20 Attend Phys: Sean Pinto MD Discharge: Date of : 44 Report #: [id number] [place] [facility]. We reviewed his opioid agreement. There are no unexpected entries or no unexpected problems. He is grateful for the pain relief he receives. Denies any significant side effects from medication. He takes it on schedule. All medicines are filled at one pharmacy until he leaves for his winter home near [place]. He has been on opioids for over 6 years with careful routine followup. His opioid risk score is 1. His impacted pain score remains high at 57%, mostly due to sleep, but he reports 80% improvement since initiation of his pain management regimen. He has some mild pain in the mid thoracic area and was told from recent x-rays that the posterior hardware screws "are loose" I don't have the x-rays or reports. He saw Dr. Morales at [facility] who told him that in order to repair the issue he would need to "take the whole thing down and start over". He asked for my thoughts on a second opinion and I've suggested Dr. Abdalla who he knows and has operated on him before. I also gave him Dr. De La Rosa's name on campus. Dr. De La Rosa has significant experience with extensive spinal fusions. He came today requesting a caudal injection. These have been helpful in thepast He understands the goals are to provide some symptom relief and our expectation meaningful relief and duration of good response. I would like him to get a few months of pain relief for this to be of value. SOCIAL HISTORY: He is very concerned about his Jocy. She has been important for his emotional stability. She is hospitalized at [facility] with a severe hip pain. Etiology remains unknown. She was admitted through the ER on Monday night and apparently was given an overdose of medications requiring rescusitation and reversal of paingmedications. Details are lacking. MEDICATIONS: Belsomra, Myrbetriq, baclofen, narcotics as described, tamsulosin, lorazepam only for severe anxiety or sleep, but he's had no prescription in the last 3 months according to PDMP. Also on opeprazole, cymbalta and sinemet for movement disorder. Norvasc, avalide. ALLERGIES: OXYCODONE, KEFLEX, AUGMENTIN, PHENERGAN AND REGLAN. PHYSICAL EXAMINATION: GENERAL: He is pleasant, alert and oriented, does not appear overmedicated. He has a slight tic which is chronic. He is 6 feet tall, 219 pounds with a BMI of 29.8. VITAL SIGNS: Blood pressure 153/91, heart rate 99, respirations 18. CHEST: Clear. [facility] [address] [place] [address] PAIN MANAGEMENT CONSULTATION Name: GENESIS MARIN III Room #: REG REGLA JosephBulmaro#: [id number] Admission: 06/15/20 Attend Phys: Sean Pinto MD Discharge: Date of : 44 Report #: [id number] CARDIAC: Rhythm is regular. He is wearing a mask due to COVID restrictions. MUSCULOSKELETAL: Reveals scars in the thoracolumbar spine that are tender. Restricted range of motion is noted. Pain with flexion and extension. Straight leg raising is negative and there are no radicular symptoms. IMPRESSION: Post-laminectomy syndrome with lumbosacral pain. This has been responsive to caudal injections with temporary improvement. PROCEDURE: Caudal epidural injection under fluoroscopic guidance. After informed consent, he was taken to the fluoroscopic suite, placed prone, skin prepped with ChloraPrep. Skin was anesthetized over the sacral hiatus. A 25-gauge needle was gently advanced into the caudal canal and 1 mL of Omnipaque was injected to demonstrate an epidurogram extending into the area of L5-S1 and beyond. It was then followed by 12 mL of 0.5% lidocaine mixed with 80 mg triamcinolone. He tolerated the procedure well. There were no complications. He was taken to recovery room for observation. Medications were ordered previously with his medication visit. We will see him back on a regular basis prior to his departure for [place]. Consults sent to Dr. De La Rosa. We will be interested in his opinion regarding potential loosening of screws in the thoracic region. By: [id number] Sean Pinto MD /nt
[2020-06-15 08:34] VITALS: BP 153/91
--- NOTE | 2020-06-15 08:46 | NUR ---
Pain Clinic Assessment: 1. History of Osteoarthritis: B/L KNEES History of Rheumatoid Arthritis: DENIES 2. Height: 6 ft. 0 in. 182.9 cm. Weight: 219.8 lb. oz. 99.701 kg. Patient's BMI: 29.8 3. Vital Signs: BP: 153/91 Pulse: 99 Resp: 18 Temp: 02 Sat: 94 ECG Mon: 4. Pain Intensity: 3-4 5. Fall Risk: Dizziness: N Needs help standing or walking: N Fallen in the last 3 months: N Fall risk comments: 6. Patient on Blood Thinner: None 7. History of Hypertension: Y 8. Opioid Therapy greater than 6 weeks: Y Opiate Contract Signed: 07/07/16 9. Risk Assessment Tool Provided: 3-L0W 10. Functional Assessment Tool: 11. Recreational Drug Use: Never Drug Type: Tobacco Use: Former Smoker Tobacco Type: Cigarettes Amount or Packs/day: How Many Years: Alcohol Use: Yes Frequency: Daily Quant: 1 BEER
== END | disposition home or self-care (01) ==
LOC: PAIN 05-28 08:21
PROVIDERS: ATTEND Anesthesiology Pain Medicine
DX: M96.1 Postlaminectomy syndrome, not elsewhere classified (principal); M54.5 Low back pain; Z79.899 Other long term (current) drug therapy; Z88.8 Allergy status to other drugs, medicaments and biological substances; Z88.1 Allergy status to other antibiotic agents

== ENCOUNTER → 2020-07-13 | Outpatient (CLI) | payer OTHER ==
[~2020-07-13] VITALS: Ht 182.9 cm; Wt 100.5 kg
--- NOTE | ~2020-07-13 | HPC ---
[facility] [address] [place] [address] PAIN MANAGEMENT CONSULTATION Name: TOMASGENESIS Arora III Room #: REG REGLA Vane#: [id number] Admission: 07/13/20 Attend Phys: Sean Pinto MD Discharge: Date of : 43 Report #: [id number] CC: OPAL Pinto DATE OF SERVICE: 07/13/2020 Followup visit for chronic intractable pain with opioid management under terms of written opioid agreement. The patient returns to pain clinic today in followup. He is alone. His Jocy is not present to discuss plans for his upcoming trip to [place]. He and his are fortunate to be able to spend their frances in [place] and their easley in [place]. He is dependent on opioids for his chronic intractable pain and has been taking them now for over 5 years. He has had an extensive lumbar fusion and complains of chronic daily pain. They will be leaving Monday. He has difficulty finding a physician who will see him in [place] and provide for his medication. Last year, we were able to provide a prescription for him for 3 months and that allowed him to make it through his [place]. Today, I would like to do that again, but will need to discuss this with his pharmacist to see if they will make an exception to a monthly schedule to opioids and provide 3 months of medication to him. It appears that we were able to make that arrangement in 2018. In August of that year, we provided him with 45 Fentanyl 50 mcg patches and 135 hydrocodone 10/325 tablets. His next prescriptions in our clinic occurred on 01/16/2020, roughly 5 months later. Today, he reports that his pain is a 4/10 with his current regimen of medicines. His BMI is 30.0, blood pressure 158/93, heart rate 95, respirations 14, an O2 sat 95. He has not fallen, although he had an Emergency Room visit at [facility]. I have not received records as requested regarding that hospitalization. He is on no blood thinners, no history of hypertension. His opioid risk assessment tool score is 3. He has signed an opioid agreement. We reviewed the terms of that agreement today. Does not smoke, occasionally will consume alcohol, which we discussed as a contraindication trying to use of his opioid medications. I referred him to Dr. Rose but he did not follow up on that referral. This was discussed the loose hardware in his upper back. He has decided against any action at this time. PHYSICAL EXAMINATION: GENERAL: Today, he does not appear overmedicated, depressed or anxious. He is a bit forgetful. He has a chronic tic and facial movement. BMI is 30. VITAL SIGNS: Blood pressure 158/93, pulse 95, and respirations 14. CHEST: Clear. CARDIAC: Rhythm is regular. MUSCULOSKELETAL: Reveals extensive scars throughout the thoracolumbar spine and restricted range of motion. He complains of tenderness across the scars. He has negative pain with straight leg raising and no radicular features are noted. IMPRESSION: 1. Post-laminectomy syndrome with chronic intractable pain. Most of his pain is axial along his hardware. 2. Hypertension. 3. History of depression and anxiety along with insomnia. 4. Management of high risk medications under terms of written opioid agreement. We have been carefully monitoring his medications. 5. Osteoarthritis. RECOMMENDATIONS: I will contact his pharmacy tomorrow morning and make arrangements to the best of our ability to provide medications for 3 months. After that, he may have to get his medications in [place] or make a return trip to [place]. I cannot prescribe over state line he is aware of that. I want to make sure his Jocy is available for our discussion so that there are no further questions about the plan. By: [id number] Sean Pinto MD /gita
[2020-07-13 13:20] VITALS: BP 158/93
--- NOTE | 2020-07-13 13:29 | NUR ---
Pain Clinic Assessment: 1. History of Osteoarthritis: B/L KNEES History of Rheumatoid Arthritis: DENIES 2. Height: 6 ft. 0 in. 182.9 cm. Weight: 221.6 lb. oz. 100.517 kg. Patient's BMI: 30.0 3. Vital Signs: BP: 158/93 Pulse: 95 Resp: 14 Temp: 02 Sat: 95 ECG Mon: 4. Pain Intensity: 4 5. Fall Risk: Dizziness: N Needs help standing or walking: N Fallen in the last 3 months: N Fall risk comments: 6. Patient on Blood Thinner: None 7. History of Hypertension: Y 8. Opioid Therapy greater than 6 weeks: Y Opiate Contract Signed: 07/07/16 9. Risk Assessment Tool Provided: 3-L0W 10. Functional Assessment Tool: 11. Recreational Drug Use: Never Drug Type: Tobacco Use: Former Smoker Tobacco Type: Amount or Packs/day: How Many Years: Alcohol Use: Yes Frequency: Quant:
== END ==
LOC: PAIN 06:52
PROVIDERS: ATTEND Anesthesiology Pain Medicine
DX: G89.29 Other chronic pain (principal); M19.90 Unspecified osteoarthritis, unspecified site; F11.20 Opioid dependence, uncomplicated; F41.8 Other specified anxiety disorders; I10 Essential (primary) hypertension; M96.1 Postlaminectomy syndrome, not elsewhere classified; Z79.899 Other long term (current) drug therapy

== ENCOUNTER → 2020-07-16 | Outpatient (CLI) | payer OTHER ==
[~2020-07-16] VITALS: Ht 182.9 cm; Wt 100.2 kg
[2020-07-16 15:08] VITALS: BP 157/96
--- NOTE | 2020-07-16 15:20 | NUR ---
Pain Clinic Assessment: 1. History of Osteoarthritis: B/L KNEES History of Rheumatoid Arthritis: DENIES 2. Height: 6 ft. 0 in. 182.9 cm. Weight: 221.0 lb. oz. 100.245 kg. Patient's BMI: 30.0 3. Vital Signs: BP: 157/96 Pulse: 86 Resp: 16 Temp: 02 Sat: 96 ECG Mon: 4. Pain Intensity: 4 5. Fall Risk: Dizziness: N Needs help standing or walking: N Fallen in the last 3 months: N Fall risk comments: 6. Patient on Blood Thinner: None 7. History of Hypertension: Y 8. Opioid Therapy greater than 6 weeks: Y Opiate Contract Signed: 07/07/16 9. Risk Assessment Tool Provided: 3-L0W 10. Functional Assessment Tool: 11. Recreational Drug Use: Never Drug Type: Tobacco Use: Former Smoker Tobacco Type: Amount or Packs/day: How Many Years: Alcohol Use: Yes Frequency: Quant:
== END ==
LOC: PAIN 07:02
PROVIDERS: ATTEND Anesthesiology Pain Medicine
DX: Z76.0 Encounter for issue of repeat prescription (principal); Z79.891 Long term (current) use of opiate analgesic; Z88.8 Allergy status to other drugs, medicaments and biological substances

== ENCOUNTER → 2021-01-18 | Outpatient (CLI) | payer OTHER ==
[~2021-01-18] VITALS: Ht 182.9 cm; Wt 102.6 kg
[~2021-01-18] MED LIST changes: +DURAGESIC1 EACH TRANSDERM
[2021-01-18 15:13] VITALS: BP 135/89
--- NOTE | 2021-01-18 15:31 | NUR ---
Pain Clinic Assessment: 1. History of Osteoarthritis: B/L KNEES History of Rheumatoid Arthritis: DENIES 2. Height: 6 ft. 0 in. 182.9 cm. Weight: 226.3 lb. oz. 102.649 kg. Patient's BMI: 30.7 3. Vital Signs: BP: 135/89 Pulse: 88 Resp: 14 Temp: 02 Sat: 96 ECG Mon: 4. Pain Intensity: 4 5. Fall Risk: Dizziness: N Needs help standing or walking: N Fallen in the last 3 months: N Fall risk comments: 6. Patient on Blood Thinner: None 7. History of Hypertension: Y 8. Opioid Therapy greater than 6 weeks: Y Opiate Contract Signed: 07/07/16 9. Risk Assessment Tool Provided: 3-L0W 10. Functional Assessment Tool: 11. Recreational Drug Use: Never Drug Type: Tobacco Use: Former Smoker Tobacco Type: Amount or Packs/day: How Many Years: Alcohol Use: Yes Frequency: Daily Quant: 1
== END ==
LOC: PAIN 10:55
PROVIDERS: ATTEND Anesthesiology Pain Medicine
DX: G89.4 Chronic pain syndrome (principal); M96.1 Postlaminectomy syndrome, not elsewhere classified; Z79.899 Other long term (current) drug therapy; Z79.891 Long term (current) use of opiate analgesic

== ENCOUNTER → 2021-02-11 | Outpatient (CLI) | payer OTHER ==
[~2021-02-11] VITALS: Ht 182.9 cm; Wt 100.3 kg
[~2021-02-11] MED LIST changes: +DURAGESIC1 EACH TOP
[2021-02-11 09:29] VITALS: BP 159/83
--- NOTE | 2021-02-11 09:34 | NUR ---
Pain Clinic Assessment: 1. History of Osteoarthritis: B/L KNEES History of Rheumatoid Arthritis: DENIES 2. Height: 6 ft. 0 in. 182.9 cm. Weight: 221.2 lb. oz. 100.336 kg. Patient's BMI: 30.0 3. Vital Signs: BP: 159/83 Pulse: 90 Resp: 16 Temp: 02 Sat: 97 ECG Mon: 4. Pain Intensity: 4 5. Fall Risk: Dizziness: N Needs help standing or walking: N Fallen in the last 3 months: N Fall risk comments: 6. Patient on Blood Thinner: None 7. History of Hypertension: Y 8. Opioid Therapy greater than 6 weeks: Y Opiate Contract Signed: 07/07/16 9. Risk Assessment Tool Provided: 3-L0W 10. Functional Assessment Tool: 11. Recreational Drug Use: Never Drug Type: Tobacco Use: Former Smoker Tobacco Type: Amount or Packs/day: How Many Years: Alcohol Use: Yes Frequency: Special Occasions Quant: very little
== END ==
LOC: PAIN 07:00
PROVIDERS: ATTEND Clinical Nurse Specialist Adult Health
DX: G89.4 Chronic pain syndrome (principal); M54.6 Pain in thoracic spine; M47.816 Spondylosis without myelopathy or radiculopathy, lumbar region; I10 Essential (primary) hypertension; Z79.891 Long term (current) use of opiate analgesic; Z79.899 Other long term (current) drug therapy; Z72.89 Other problems related to lifestyle; Z88.1 Allergy status to other antibiotic agents; Z88.5 Allergy status to narcotic agent

== ENCOUNTER → 2021-04-05 | Outpatient (CLI) | payer OTHER ==
[~2021-04-05] VITALS: Ht 182.9 cm; Wt 98.8 kg
[2021-04-05 09:29] VITALS: BP 146/95
--- NOTE | 2021-04-05 09:51 | NUR ---
Pain Clinic Assessment: 1. History of Osteoarthritis: B/L KNEES History of Rheumatoid Arthritis: DENIES 2. Height: 6 ft. 0 in. 182.9 cm. Weight: 217.8 lb. oz. 98.794 kg. Patient's BMI: 29.5 3. Vital Signs: BP: 146/95 Pulse: 96 Resp: 16 Temp: 02 Sat: 97 ECG Mon: 4. Pain Intensity: 2 5. Fall Risk: Dizziness: N Needs help standing or walking: N Fallen in the last 3 months: N Fall risk comments: 6. Patient on Blood Thinner: None 7. History of Hypertension: Y 8. Opioid Therapy greater than 6 weeks: Y Opiate Contract Signed: 07/07/16 9. Risk Assessment Tool Provided: 3-L0W 10. Functional Assessment Tool: 11. Recreational Drug Use: Never Drug Type: Tobacco Use: Former Smoker Tobacco Type: Amount or Packs/day: How Many Years: Alcohol Use: Yes Frequency: Daily Quant: 1 BEER
== END ==
LOC: PAIN 06:51
PROVIDERS: ATTEND Clinical Nurse Specialist Adult Health
DX: Z76.0 Encounter for issue of repeat prescription (principal); M96.1 Postlaminectomy syndrome, not elsewhere classified; G89.29 Other chronic pain; M17.11 Unilateral primary osteoarthritis, right knee; M17.12 Unilateral primary osteoarthritis, left knee; I10 Essential (primary) hypertension; M47.816 Spondylosis without myelopathy or radiculopathy, lumbar region; K59.00 Constipation, unspecified; Z79.891 Long term (current) use of opiate analgesic; Z72.89 Other problems related to lifestyle; Z79.899 Other long term (current) drug therapy; Z88.8 Allergy status to other drugs, medicaments and biological substances

== ENCOUNTER → 2021-06-14 | Outpatient (CLI) | payer OTHER ==
[~2021-06-14] VITALS: Ht 182.9 cm; Wt 103.4 kg
[~2021-06-14] MED LIST changes: +FENTANYL1 EAC1 TRANSDERM; +FENTANYL1 EAC7 TRANSDERM
[2021-06-14 09:29] VITALS: BP 128/76
--- NOTE | 2021-06-14 09:33 | NUR ---
Pain Clinic Assessment: 1. History of Osteoarthritis: B/L KNEES History of Rheumatoid Arthritis: DENIES 2. Height: 6 ft. 0 in. 182.9 cm. Weight: 228.0 lb. oz. 103.420 kg. Patient's BMI: 30.9 3. Vital Signs: BP: 128/76 Pulse: 94 Resp: 18 Temp: 02 Sat: 96 ECG Mon: 4. Pain Intensity: 3 5. Fall Risk: Dizziness: N Needs help standing or walking: N Fallen in the last 3 months: N Fall risk comments: 6. Patient on Blood Thinner: None 7. History of Hypertension: Y 8. Opioid Therapy greater than 6 weeks: Y Opiate Contract Signed: 07/07/16 9. Risk Assessment Tool Provided: 3-L0W 10. Functional Assessment Tool: 11. Recreational Drug Use: Never Drug Type: Tobacco Use: Former Smoker Tobacco Type: Amount or Packs/day: How Many Years: Alcohol Use: Yes Frequency: Daily Quant: 1 BEER
== END ==
LOC: PAIN 09:05
PROVIDERS: ATTEND Clinical Nurse Specialist Adult Health
DX: G89.4 Chronic pain syndrome (principal); M47.26 Other spondylosis with radiculopathy, lumbar region; Z72.89 Other problems related to lifestyle; Z87.891 Personal history of nicotine dependence; Z79.899 Other long term (current) drug therapy; Z79.891 Long term (current) use of opiate analgesic; Z88.1 Allergy status to other antibiotic agents; Z88.8 Allergy status to other drugs, medicaments and biological substances